=== PATIENT | male | born 1950 | race Caucasian/White ===

== ENCOUNTER 2020-01-15 09:24 | Outpatient (CLI) | payer MEDICARE, SELFPAY ==
[2020-01-15 10:04] LABS: Anion Gap 9 mmol/L (8-16); Blood Urea Nitrogen 20 mg/dL (9-20); Calcium 9.6 mg/dL (8.4-10.2); Carbon Dioxide 26 mmol/L (22-30); Chloride 103 mmol/L (98-107); Estimated Glomerular Filt Rate > 60; Glucose 187 mg/dL (75-110); Sodium 138 mmol/L (137-145)
== END 2020-01-15 09:25 | disposition home or self-care (01) ==
LOC: ANHSURGERY 09:31
PROVIDERS: Anesthesiology; PCP Internal Medicine; Visit Provider Urology
DX: Z01.818 Encounter for other preprocedural examination (principal); E11.9 Type 2 diabetes mellitus without complications; C61 Malignant neoplasm of prostate
CPT/HCPCS: 36415; 80048; 87086

== ENCOUNTER 2020-01-20 02:00 | Outpatient (CLI) | payer MEDICARE, SELFPAY ==
[2020-01-20 19:29] LABS: SARS-CoV-2 RNA PCR Negative
== END 2020-01-20 02:01 | disposition home or self-care (01) ==
LOC: ANHCOVIDDT 02:00
PROVIDERS: PCP Internal Medicine; Visit Provider Urology
DX: Z01.812 Encounter for preprocedural laboratory examination (principal); Z11.59 Encounter for screening for other viral diseases
CPT/HCPCS: 87635; C9803; U0003

== ENCOUNTER 2020-01-23 00:57 | Day surgery (SDC) | payer MEDICARE, SELFPAY ==
[2020-01-10 12:22] VITALS: BMI 29.6
--- NOTE | 2020-01-19 10:06 | PC.NURSE ---
SPOKE WITH PT. AWARE OF NEW DATE AND TIME OF SURGERY AND COVID TESTING. NO CHANGE IN HEALTH HX
[2020-01-23 12:50] LABS: Glucose Point of Care 131 (65-105)
[2020-01-23 13:35] VITALS: BP 135/64; PULSE 61; RESP 14; TEMP 36.6; O2SAT 92; BMI 28.8
[2020-01-23] MEDS: LACTATED RINGERS 1,000 ML 30 ML IV CONT (13:36)
--- NOTE | 2020-01-23 14:19 | WPDHPUPDATE1 ---
History and Physical Update Update Date/Time: 01/23/20 14:19 History and Physical has been reviewed, including an updated exam of the patient. There are NO changes in the patient's condition. Risks, benefits, and alternatives have been discussed and questions answered. Patient agrees to proceed with procedure.
--- NOTE | 2020-01-23 15:39 | WPDANESEPPF ---
Anes - Initial Pre Proc Eval Procedure: Operation Date: 01/23/20 14:00 Proposed Procedures p Insertion SpaceOAR Hydrogel System - Armando Saavedra MD Date/Time: 01/23/20 15:39 Surgeon: Armando Saavedra MD Pre Op Diagnosis: prostate ca Patient Data Age: 69 Gender: M Height: 5 ft 9 in Weight: 88.5 kg Last Vital Signs Temp 36.6 C 01/23/20 13:35 Pulse 61 01/23/20 13:35 Resp 14 01/23/20 13:35 BP 135/64 01/23/20 13:35 Pulse Ox 92 01/23/20 13:35 Allergies Allergy/AdvReac Type Severity Reaction Status Date / Time No Known Allergies Allergy Unverified 01/19/20 10:05 Home Medications Medication Instructions Recorded Confirmed Type amlodipine 10 mg PO HS 01/10/20 01/19/20 History antiox.mv [id number] 1 cap PO DAILY 01/10/20 01/19/20 History [I-Caps] certolizumab pegol [Cimzia] 400 mg SUBCUT MONTHLY 01/10/20 01/19/20 History ergocalciferol (vitamin D2) 1,250 mcg PO MONTHLY 01/10/20 01/19/20 History [Vitamin D2] folic acid 1 mg PO DAILY 01/10/20 01/19/20 History gabapentin 300 mg PO QAM 01/10/20 01/19/20 History glipizide 5 mg PO QAM 01/10/20 01/19/20 History hydroxychloroquine 400 mg PO DAILY 01/10/20 01/19/20 History losartan 100 mg PO HS 01/10/20 01/19/20 History methotrexate sodium 15 mg PO WEEKLY 01/10/20 01/19/20 History rosuvastatin 20 mg PO DAILY 01/10/20 01/19/20 History sildenafil [Viagra] 50 mg PO DAILY PRN 01/10/20 01/19/20 History tamsulosin 0.4 mg PO HS 01/10/20 01/19/20 History tramadol 50 mg PO TID PRN 01/10/20 01/19/20 History Laboratory Tests 01/23/20 12:48 POC Capillary Glucose 131 mg/dl H mg/dl (65-105) Patient hx anesthesia problems: none Family hx anesthesia problems: none PMFSH Past Medical History Medical History Diabetes Hyperlipidemia Hypertension Neuropathy Social History Social History Smoking status: Never smoker Alcohol intake: current Drinks per week: 2 Alcohol use details: BEERS Substance use: never Living arrangements: with family Spiritual care concerns: No Anes - Eval Final PreProcedure Day of Procedure 01/23/20 15:39 Patient weight: overweight Heart: regular rate and rhythm Lungs: clear to auscultation Airway: Mallampati scale class II Neurological: alert and oriented Last oral intake: >/= 8 hours ASA classification: III Emergent: no Anesthetic plan: proceed Anesthesia type and monitoring: general GIVS and standard monitoring Informed Consent: The patient's anesthetic plan and its attendant risks and benefits were discussed with the patient/family/POA. Questions were solicited and answers provided to the satisfaction of the patient/family/POA.
[2020-01-23] MEDS: ceFAZolin 2 GM/D5W 50 ML 2 GM/50 ML BAG IVPB (15:59)
--- NOTE | 2020-01-23 16:21 | P.OP_ITS ---
Procedure Note - Detailed Date of procedure: 01/23/20 Pre-op diagnosis: prostate ca Post-op diagnosis: same Procedure performed: Transrectal ultrasound with space OAR placement Description of procedure: patient is taken to the operative suite and correctly identified. Once anesthesia was obtained he was placed in dorsal lithotomy position prepped draped usual sterile fashion. Transrectal ultrasound was then performed and the prostate was visualized in both the transverse and sagittal views. The plane between the prostate and the rectum was visualized without any difficulty. At this point time the space oar apparatus was mixed ap propriately. We then placed a spinal needle in the perineal space between the prostate and the rectum. The needle tip was visualized at all times it was confirmed in both the transverse and sagittal planes. Couple cc of normal saline was injected and there was a nice little separation. We then went ahead and used the space oar injectable and injected it with the spinal needle which had been placed. At all times the tip of the needle was visualized. There was no penetration of the rectum or prostatic capsule. There was a nice separation noted at termination procedure. Patient tolerated procedure well without any complications and is taken recovery room stable condition. Anesthesia: GLMA Surgeon: Armando Saavedra MD Drains: No Packing: No Pathology: none sent Complications: No immediate complications Condition: stable Disposition: PACU
[2020-01-23 16:27] VITALS: BP 108/49; PULSE 51; RESP 14
[2020-01-23 16:57] VITALS: BP 119/59; PULSE 57; RESP 14
[2020-01-23 17:27] VITALS: BP 142/65; PULSE 60; RESP 14
[2020-01-23 17:45] VITALS: BP 148/67; PULSE 60; RESP 14
== END 2020-01-23 17:55 | disposition home or self-care (01) ==
PROVIDERS: PCP Internal Medicine; Visit Provider Urology
PROC: (CPT 55874; principal; 2020-01-23 14:00)
DX: C61 Malignant neoplasm of prostate (principal); E11.40 Type 2 diabetes mellitus with diabetic neuropathy, unspecified; Z79.84 Long term (current) use of oral hypoglycemic drugs; I10 Essential (primary) hypertension; E78.5 Hyperlipidemia, unspecified; Z79.899 Other long term (current) drug therapy
CPT/HCPCS: 55874; A9270; C1889; J0690; J2250; J2704; J3010; J7120

== ENCOUNTER → 2020-03-04 11:31 | Outpatient (CLI) | payer MEDICARE, SELFPAY ==
--- NOTE | ~2020-03-04 | XR_ITS ---
EXAMINATION: XR chest 2V DATE: 03/04/2020 11:53 INDICATION: Asbestosis exposure. TECHNIQUE: Frontal and lateral views of the chest were obtained. COMPARISON: Chest 2 views 05/28/2016, CT abdomen 10/04/2017 FINDINGS: The chest demonstrates clear lungs without pneumonia, pleural effusion, or pneumothorax. Th e heart size is normal. IMPRESSION: 1. No acute cardiopulmonary disease. Reviewed, dictated and finalized at location A.
== END ==
PROVIDERS: PCP Internal Medicine; Visit Provider Internal Medicine
DX: Z77.090 Contact with and (suspected) exposure to asbestos (principal)
CPT/HCPCS: 71046

== ENCOUNTER 2021-06-04 09:03 | Outpatient (CLI) | payer MEDICARE, SELFPAY ==
--- NOTE | ~2021-06-04 | XR_ITS ---
EXAMINATION: XR abdomen/kub 1V DATE: 06/04/2021 09:26 INDICATION: Calcium kidney stone. TECHNIQUE: A supine view of the abdomen on 2 radiographs was obtained. COMPARISON: Abdomen radiographs 03/23/2018, CT abdomen 10/04/2017 FINDINGS: There are no dilated loops of bowel. The kidneys are obscured by bowel. 2 mm and 3 mm calci fications overlie the expected area of left kidney. There are phleboliths in the pelvis. Surgical cli ps overlie the pelvis. There are changes of anterior and posterior fusion procedures in lumbar spine. IMPRESSION: 1. Kidneys obscured by bowel. Small calcifications overlying the expected area of left kidney may be stones or calcifications in stool. Reviewed, dictated and finalized at location B. GER ETL
== END 2021-06-04 09:04 | disposition home or self-care (01) ==
LOC: ANHIMG 09:08
PROVIDERS: PCP Internal Medicine; Visit Provider Urology
DX: N20.0 Calculus of kidney (principal)
CPT/HCPCS: 74018

== ENCOUNTER 2021-09-29 01:49 | Day surgery (SDC) | payer MEDICARE, SELFPAY ==
[2021-09-10 14:58] VITALS: BMI 29.5
[2021-09-29 09:37] VITALS: BP 148/61; PULSE 95; RESP 19; TEMP 36.4; O2SAT 96
[2021-09-29] MEDS: LACTATED RINGERS 1,000 ML 150 ML IV CONT (09:51)
[2021-09-29 09:54] LABS: Glucose Point of Care 126 mg/dl (65-105)
--- NOTE | 2021-09-29 09:55 | PM.HPGS ---
History of Present Illness History of Present Illness Consent: Risks, benefits, and alternatives have been discussed and questions answered. Patient agrees to proceed with procedure. Chief complaint: family hx of colon ca Narrative: Chance Cervantes Sr. is a 70 year old male referred for colon cancer screening. He has a family history of colon cancer, his father. Review of Systems Review of Systems: All systems reviewed & are unremarkable except as noted in HPI and below PMFSH Past Medical History Medical History (Updated 09/29/21 @ 09:55 by Tirso Sheffield MD) Diabetes Hyperlipidemia Hypertension Neuropathy Social History Social History Smoking status: Never smoker Alcohol intake: current Drinks per week: 2 Alcohol use details: BEERS Substance use: never Substance use type: does not use Living arrangements: with family Spiritual care concerns: No Meds Home Medications and Allergies Home Medications Medication Instructions Recorded Confirmed Type Cimzia 400 mg SUBCUT MONTHLY 01/10/20 09/10/21 History I-Caps 1 cap PO DAILY 01/10/20 09/10/21 History amlodipine 5 mg PO HS 01/10/20 09/10/21 History ergocalciferol (vitamin D2) 1,250 mcg PO MONTHLY 01/10/20 09/10/21 History [Vitamin D2] gabapentin 300 mg PO QAM 01/10/20 09/10/21 History glipizide 5 mg PO QAM 01/10/20 09/10/21 History hydroxychloroquine 400 mg PO DAILY 01/10/20 09/10/21 History losartan 100 mg PO HS 01/10/20 09/10/21 History rosuvastatin 10 mg PO DAILY 01/10/20 09/10/21 History sildenafil [Viagra] 50 mg PO DAILY PRN 01/10/20 09/10/21 History tamsulosin 0.4 mg PO HS 01/10/20 09/10/21 History tramadol 50 mg PO TID PRN 01/10/20 09/10/21 History chlorthalidone 12.5 mg PO DAILY 09/10/21 09/10/21 History Allergies Allergy/AdvReac Type Severity Reaction Status Date / Time No Known Allergies Allergy Verified 09/29/21 09:35 Vital Signs Vital Signs - 24 hr 09/29/21 09:37 Temperature 36.4 C Pulse Rate 95 Respiratory Rate 19 Blood Pressure 148/61 H Pulse Oximetry 96 Exam Resp: Auscultation: clear to auscultation bilaterally Cardio: Rate: regular rate Rhythm: regular rhythm GI: GI Palp: Yes Soft to palpation and No Tenderness to palpation present (GI) Assessment and Plan Assessment and plan (1) Colon cancer screening: Code(s): Z12.11 - Encounter for screening for malignant neoplasm of colon Status: Acute Assessment and Plan: Colonoscopy with possible biopsy or polypectomy or cautery or injection of substances.
--- NOTE | 2021-09-29 10:09 | WPDANESEPPF ---
Anes - Initial Pre Proc Eval Procedure: Operation Date: 09/29/21 10:30 Proposed Procedures p Screening Colonoscopy - Tirso Sheffield MD Date/Time: 09/29/21 10:09 Surgeon: Tirso Sheffield MD Pre Op Diagnosis: family hx of colon ca Patient Data Age: 70 Gender: M Height: 1.78 m Weight: 90.8 kg Last Vital Signs Temp 97.6 F 09/29/21 09:37 Pulse 95 09/29/21 09:37 Resp 19 09/29/21 09:37 BP 148/61 H 09/29/21 09:37 Pulse Ox 96 09/29/21 09:37 Allergies Allergy/AdvReac Type Severity Reaction Status Date / Time No Known Allergies Allergy Verified 09/29/21 09:35 Home Medications Medication Instructions Recorded Confirmed Type Cimzia 400 mg SUBCUT MONTHLY 01/10/20 09/10/21 History I-Caps 1 cap PO DAILY 01/10/20 09/10/21 History amlodipine 5 mg PO HS 01/10/20 09/10/21 History ergocalciferol (vitamin D2) 1,250 mcg PO MONTHLY 01/10/20 09/10/21 History [Vitamin D2] gabapentin 300 mg PO QAM 01/10/20 09/10/21 History glipizide 5 mg PO QAM 01/10/20 09/10/21 History hydroxychloroquine 400 mg PO DAILY 01/10/20 09/10/21 History losartan 100 mg PO HS 01/10/20 09/10/21 History rosuvastatin 10 mg PO DAILY 01/10/20 09/10/21 History sildenafil [Viagra] 50 mg PO DAILY PRN 01/10/20 09/10/21 History tamsulosin 0.4 mg PO HS 01/10/20 09/10/21 History tramadol 50 mg PO TID PRN 01/10/20 09/10/21 History chlorthalidone 12.5 mg PO DAILY 09/10/21 09/10/21 History Laboratory Tests 09/29/21 09:43 POC Capillary Glucose 126 mg/dl H mg/dl (65-105) Patient hx anesthesia problems: none Family hx anesthesia problems: none Results Review: All pre-operative results and documents have been reviewed as part of the pre-operative evaluation. COUNTS INCLUDE 234 BEDS AT THE [facility] Past Medical History Medical History (Updated 09/29/21 @ 09:55 by Tirso Sheffield MD) Diabetes Hyperlipidemia Hypertension Neuropathy Social History Social History Smoking status: Never smoker Alcohol intake: current Drinks per week: 2 Alcohol use details: BEERS Substance use: never Substance use type: does not use Living arrangements: with family Spiritual care concerns: No Anes - Eval Final PreProcedure Day of Procedure 09/29/21 10:09 Patient weight: overweight Heart: regular rate and rhythm Lungs: clear to auscultation Airway: Mallampati scale class II Neurological: alert and oriented Last oral intake: >/= 8 hours ASA classification: III Emergent: no Anesthetic plan: proceed Anesthesia type and monitoring: general GIVS and standard monitoring Results Review: All pre-operative results and documents have been reviewed as part of the pre-operative evaluation. Informed Consent: The patient's anesthetic plan and its attendant risks and benefits were discussed with the patient/family/POA. Questions were solicited and answers provided to the satisfaction of the patient/family/POA.
[2021-09-29 10:31] VITALS: BP 109/66; PULSE 71; RESP 17; O2SAT 96
[2021-09-29 10:41] VITALS: BP 117/65; PULSE 67; RESP 16; O2SAT 96
[2021-09-29 10:51] VITALS: BP 117/64; PULSE 65; RESP 18; O2SAT 96
== END 2021-09-29 10:55 | disposition home or self-care (01) ==
PROVIDERS: PCP Internal Medicine; Visit Provider Internal Medicine Gastroenterology
PROC: 0DJD8ZZ Inspection of Lower Intestinal Tract, Via Natural or Artificial Opening Endoscopic (ICD-10-PCS; CPT 45378; principal; 2021-09-29 10:30)
DX: Z12.11 Encounter for screening for malignant neoplasm of colon (principal); D12.2 Benign neoplasm of ascending colon; D12.5 Benign neoplasm of sigmoid colon; Z80.0 Family history of malignant neoplasm of digestive organs; K64.8 Other hemorrhoids; K57.30 Diverticulosis of large intestine without perforation or abscess without bleeding; K62.7 Radiation proctitis; I10 Essential (primary) hypertension; E78.5 Hyperlipidemia, unspecified; E11.40 Type 2 diabetes mellitus with diabetic neuropathy, unspecified
CPT/HCPCS: 45385; 82948; 88305; J2704; J7120

== ENCOUNTER 2022-01-12 14:56 | Outpatient (CLI) | payer MEDICARE, SELFPAY ==
--- NOTE | ~2022-01-12 | CT_ITS ---
EXAMINATION: CT abdomen pelvis wo/w con DATE: 01/12/2022 15:47 INDICATION: Hematuria. TECHNIQUE: Computed tomography (CT) of the abdomen and pelvis was performed without and with intraven ous contrast using a total of 130 mL Omnipaque-350 intravenous contrast with a double-bolus technique for simultaneous opacification of the renal parenchyma and renal collecting system. Automated exposu re control and iterative reconstruction technique were employed. The dose-length product was 1452.50 mGy-cm. COMPARISON: CT abdomen 10/04/2017 FINDINGS: The visualized portions of the lung bases demonstrate mild atelectasis. No pleural effusion. The hear t size is normal. There are coronary artery calcifications. No pericardial effusion. The liver, gallb ladder, spleen, pancreas, and adrenal glands are normal. There are cysts in the kidneys measuring up to 4.7 cm on the left. There are 3 stones in left kidney measuring up to 5 mm. The ureters are well o pacified and are normal. There is diffuse bladder wall thickening, likely secondary to chronic outlet obstruction from the severely enlarged prostate. There are brachytherapy seeds in the prostate. Ther e is a left inguinal hernia containing fat. There is diverticulosis of the colon without evidence of diverticulitis. The appendix is normal. There are no dilated loops of bowel. There are no pathologica lly enlarged lymph nodes. There is no free intraperitoneal fluid. There is severe lumbar spondylosis. There are changes of anterior and posterior fusion procedures in lumbar spine. IMPRESSION: 1. Nonobstructing left kidney stones. 2. Diffuse bladder wall thickening, likely secondary to chronic outlet obstruction from the severely enlarged prostate. Reviewed, dictated and finalized at location A. IMPRESSION: 1. Nonobstructing left kidney stones. 2. Diffuse bladder wall thickening, likely secondary to chronic outlet obstruct ion from the severely enlarged prostate.
--- NOTE | ~2022-01-12 | XR_ITS ---
EXAM: XR abdomen/kub 1V DATE: 01/12/2022 15:18 HISTORY: GROSS HEMATURIA . COMPARISON: 06/04/2021. FINDINGS: Normal bowel gas pattern. No organomegaly. Stable left lower pole nephroliths. Pelvic phle boliths. Surgical clips or seeds markers overlie the pelvis. Lumbar spine fusions. Severe degenerativ e change in the spine. IMPRESSION: Stable left nephrolithiasis. Reviewed, dictated and finalized at location K.
[2022-01-12 15:28] LABS: Estimated Glomerular Filt Rate 50
== END 2022-01-12 14:57 | disposition home or self-care (01) ==
PROVIDERS: PCP Internal Medicine; Visit Provider Urology
DX: R31.0 Gross hematuria (principal); N20.0 Calculus of kidney
CPT/HCPCS: 74018; 74178; Q9967

== ENCOUNTER 2022-04-22 14:49 | Outpatient (CLI) | payer MEDICARE, SELFPAY ==
--- NOTE | 2022-04-22 | ECG_ITS ---
Measurements Intervals [place] Rate: 61 P: 45 TN: 263 QRS: -3 QRSD: 97 T: 12 QT: 402 QTc: 406 Interpretive Statements SINUS RHYTHM WITH FIRST DEGREE AV BLOCK LEFT VENTRICULAR HYPERTROPHY ABNORMAL ECG NO PREVIOUS ECG AVAILABLE FOR COMPARISON Electronically Signed On 04-22-2022 16:11:59 [employer] DEVEL[employer] by Artie Paredes D.O.
[2022-04-22 16:11] LABS: Anion Gap 7 mmol/L (8-16); Blood Urea Nitrogen 20 mg/dL (9-20); Calcium 9.5 mg/dL (8.4-10.2); Carbon Dioxide 20 mmol/L (22-30); Chloride 108 mmol/L (98-107); Estimated Glomerular Filt Rate > 60; Glucose 113 mg/dL (65-110); Potassium 4.4 mmol/L (3.4-5.0); Sodium 135 mmol/L (137-145)
== END 2022-04-22 14:50 | disposition home or self-care (01) ==
PROVIDERS: PCP Internal Medicine; Visit Provider Orthopaedic Surgery
DX: Z01.818 Encounter for other preprocedural examination (principal); I44.0 Atrioventricular block, first degree
CPT/HCPCS: 36415; 80048; 93005

== ENCOUNTER 2023-07-28 08:45 | Outpatient (CLI) | payer MEDICARE, SELFPAY ==
--- NOTE | ~2023-07-28 | CT_ITS ---
CT of the Abdomen and Pelvis: Indication: Chronic kidney disease, renal cyst Technique: 2.5 mm axial scans were obtained through the abdomen and pelvis following intravenous adm inistration of 100 cc of Omnipaque 350. Dose reduction technique was used on this scan by utilizing a utomated exposure control and iterative reconstruction technique. The dose-length product (DLP) was 7 06.45 mGy-cm. COMPARISON: 01/12/2022 Findings: Scans through the lung bases are unremarkable. The liver, spleen, pancreas, gallbladder, and adrenal glands are within normal limits. Bilateral chantel l cysts are present. There are several small nonobstructing left renal stones, largest measuring 5 mm . There are atherosclerotic calcifications of the aorta. No lymphadenopathy. No bowel obstruction or bowel wall thickening. There is no evidence to suggest acute appendicitis. Images through the pelvis were performed. Questionable mild urinary bladder wall thickening. Prostate gland markedly enlarged. Impression: Nonobstructing left nephrolithiasis. Bilateral renal cysts. Questionable cystitis versus underdistention. Bladder. Correlate with clinical symptoms and urinalysi s. Markedly enlarged prostate gland. Reviewed, dictated and finalized at [facility]. [employer] Impression: Nonobstructing left nephrolithiasis. Bilateral renal cysts. Questionable cystitis versus underdistention. Bladder. Correlate with clinical symptoms and urinalysis. Markedly enlarged prostate gland.
[2023-07-28 09:13] LABS: Estimated Glomerular Filt Rate 54
== END 2023-07-28 08:46 | disposition home or self-care (01) ==
PROVIDERS: PCP Internal Medicine; Visit Provider Internal Medicine Nephrology
DX: N20.0 Calculus of kidney (principal); N28.1 Cyst of kidney, acquired; N12 Tubulo-interstitial nephritis, not specified as acute or chronic; E78.00 Pure hypercholesterolemia, unspecified; E11.22 Type 2 diabetes mellitus with diabetic chronic kidney disease; I12.9 Hypertensive chronic kidney disease with stage 1 through stage 4 chronic kidney disease, or unspecified chronic kidney disease; N18.2 Chronic kidney disease, stage 2 (mild); R80.1 Persistent proteinuria, unspecified; N40.0 Benign prostatic hyperplasia without lower urinary tract symptoms
CPT/HCPCS: 74177; Q9967

== ENCOUNTER 2024-09-27 09:38 | Emergency (ER) | payer MEDICARE, SELFPAY ==
--- NOTE | ~2024-09-27 | XR_ITS ---
EXAMINATION: XR hand RT min 3V DATE: 09/27/2024 10:10 INDICATION: Pain and swelling at the right thumb TECHNIQUE: Posteroanterior, oblique and lateral views of the right hand were obtained. COMPARISON: 07/14/2022 FINDINGS: No fracture or traumatic malalignment. There is polyarticular osteoarthritis, severe at the interphal angeal joints, triscaphe and first carpal metacarpal joints and moderate severity at the distal radio ulnar, radiocarpal, midcarpal and third and fourth metacarpophalangeal joints and mild at the remaini ng joints in the carpus and remaining metacarpophalangeal joints. Again seen is a third proximal inte rphalangeal joint arthroplasty with 12 degrees ulnar angulation. No acute appearing erosions, osteoly sis or periosteal reaction. Atherosclerotic calcifications at the distal forearm extending into the h and. IMPRESSION: 1. 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 No acute osseous abnormality. Reviewed, dictated and finalized at location A. IMPRESSION: 1. 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 No acute osseous abno rmality.
[2024-09-27 09:50] VITALS: BP 143/54; PULSE 64; RESP 16; TEMP 36.9; O2SAT 99
--- NOTE | 2024-09-27 09:57 | ED_ITS ---
HPI - Extremity Injury (Upper) General Chief Complaint: Extremity Injury, Upper Stated Complaint: rt hand pain Time Seen by Provider: 09/27/24 09:57 Source: patient Mode of arrival: ambulatory Limitations: no limitations Related Data Home Medications ?Medication ?Instructions ?Recorded ?Confirmed ?Last Taken ?Type amlodipine 10 mg tablet 5 mg PO HS 01/10/20 07/01/23 09/28/21 History certolizumab pegol 400 mg/2 mL 400 mg subcut MONTHLY 01/10/20 07/01/23 09/28/21 History (200 mg/mL x2) subcutaneous syringe kit (Cimzia) ergocalciferol (vitamin D2) 1,250 1,250 mcg PO MONTHLY 01/10/20 07/01/23 09/28/21 History mcg (50,000 unit) capsule (Vitamin D2) gabapentin 100 mg capsule 300 mg PO QAM 01/10/20 07/01/23 09/28/21 History hydroxychloroquine 200 mg tablet 400 mg PO DAILY 01/10/20 07/01/23 09/28/21 History losartan 100 mg tablet 100 mg PO HS 01/10/20 07/01/23 09/28/21 History rosuvastatin 20 mg tablet 10 mg PO DAILY 01/10/20 07/01/23 09/28/21 History sildenafil 50 mg tablet (Viagra) 50 mg PO DAILY PRN Erectile 01/10/20 07/01/23 09/28/21 History Dysfunction tamsulosin 0.4 mg capsule 0.4 mg PO HS 01/10/20 07/01/23 09/28/21 History tramadol 50 mg tablet 50 mg PO TID PRN Pain 01/10/20 07/01/23 09/28/21 History chlorthalidone 25 mg tablet 12.5 mg PO DAILY 09/10/21 07/01/23 09/28/21 History acetaminophen 650 mg 650 mg PO Q12H 07/01/23 07/01/23 Unknown History tablet,extended release (Tylenol 8 Hour) meclizine 25 mg tablet 25 mg PO BID PRN 07/01/23 07/01/23 Unknown History mecobalamin (vitamin B12) 1,000 1,000 mcg PO DAILY 07/01/23 07/01/23 Unknown History mcg chewable tablet sulfasalazine 500 mg tablet 0.5 g PO DAILY 07/01/23 07/01/23 Unknown History vitamins A,C,Q-[id number]-efyqkz 2,148 2 tablet PO BID 07/01/23 07/01/23 Unknown His tory mcg-113 mg-45 mg-17.4 mg tablet (PreserVision AREDS) Allergies Allergy/AdvReac Type Severity Reaction Status Date / Time No Known Allergies Allergy Verified 09/27/24 09:47 [facility] Past Medical History Medical History (Updated 09/27/24 @ 10:23 by Mariangel Cleary NP) Rheumatoid arthritis Neuropathy Hypertension Hyperlipidemia Diabetes Surgical History Surgical History (Updated 07/01/23 @ 08:50 by Chalino Walters MD) History of back surgery x3 History of carpal tunnel release of both wrists History of shoulder surgery bilateral History of hand surgery History of ankle surgery History of knee replacement bilateral History of arthroscopy of left knee Family History Family History (Updated 07/01/23 @ 08:[address] Glass CMA) Mother Cancer Father Cancer Social History Social History (Updated 07/01/23 @ 08:[address] CMA) Smoking status: Never smoker Alcohol intake: current Drinks per week: 2 Alcohol use details: BEERS Substance use: never Substance use type: does not use Do You Feel Safe in your Home?: Yes Lack of Transportation: No Lack of Food: Never True Current Housing: I Have Housing Concerned About Future Housing: No Difficulty Paying Gas/Electric Bills: No Difficulty Paying for Meds: No Currently Unemployed: No Education: Trade/Vocational Certificate Difficulty w/ Childcare or Family Care: No Living arrangements: with family Occupation/Education: retired Spiritual care concerns: No Course Vital Signs Vital signs: Vital Signs Temperature 36.9 C 09/27/24 09:50 Pulse Rate 64 09/27/24 09:50 Respiratory Rate 16 09/27/24 09:50 Blood Pressure 143/54 H 09/27/24 09:50 Pulse Oximetry 99 09/27/24 09:50 Oxygen Delivery Room Air 09/27/24 09:50 Temperature 36.9 C 09/27/24 09:50 Pulse Rate 64 09/27/24 09:50 Respiratory Rate 16 09/27/24 09:50 Blood Pressure 143/54 H 09/27/24 09:50 Pulse Oximetry 99 09/27/24 09:50 Oxygen Delivery Room Air 09/27/24 09:50 MDM - Extremity Injury (Upper) Imaging Data My impression: agree with radiologist Radiologist's impression: EXAMINATION: XR hand RT min 3V DATE: 09/27/2024 10:10 INDICATION: Pain and swelling at the right thumb TECHNIQUE: Posteroanterior, oblique and lateral views of the right hand were obtained. COMPARISON: 07/14/2022 FINDINGS: No fracture or traumatic malalignment. There is polyarticular osteoarthritis, severe at the interphalangeal joints, triscaphe and first carpal metacarpal joints and moderate severity at the distal radioulnar, radiocarpal, midcarpal and third and fourth metacarpophalangeal joints and mild at the remaining joints in the carpus and remaining metacarpophalangeal joints. Again seen is a third proximal interphalangeal joint arthroplasty with 12 degrees ulnar angulation. No acute appearing erosions, osteolysis or periosteal reaction. Atherosclerotic calcifications at the distal forearm extending into the hand. IMPRESSION: 1. 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 No acute osseous abnormality. Discharge Plan Discharge Clinical Impression: Sprain of hand, thumb, right Qualifiers: Encounter type: initial encounter Sprain of finger site: unspecified site Qualified Code(s): S63.601A - Unspecified sprain of right thumb, initial encounter Patient Disposition: Home Condition: Stable Instructions: Finger Sprain (ED) Additional Instructions: the x-ray of your right thumb was negative for fracture. Take Tylenol every 6-8 hours as needed for pain. Apply ice as needed for pain. Elevate when at rest. follow-up with your doctor if not improving. Patient Language: American Prescriptions: No Action acetaminophen [Tylenol 8 Hour] 650 mg tablet extended release 650 mg PO Q12H meclizine 25 mg tablet 25 mg PO BID PRN sulfasalazine 500 mg tablet 0.5 g PO DAILY Rx Instructions: give with food (meal/snack) mecobalamin (vitamin B12) 1,000 mcg tablet,chewable 1,000 mcg PO DAILY PreserVision AREDS 2,148 mcg-113 mg-45 mg-17.4mg tablet 2 tablet PO BID Rx Instructions: administer with AM and PM meals sildenafil [Viagra] 50 mg tablet 50 mg PO DAILY PRN (Reason: Erectile Dysfunction) tramadol 50 mg tablet 50 mg PO TID PRN (Reason: Pain) tamsulosin 0.4 mg capsule 0.4 mg PO HS amlodipine 10 mg tablet 5 mg PO HS gabapentin 100 mg capsule 300 mg PO QAM ergocalciferol (vitamin D2) [Vitamin D2] 1,250 mcg (50,000 unit) capsule 1,250 mcg PO MONTHLY hydroxychloroquine 200 mg tablet 400 mg PO DAILY Rx Instructions: NOON losartan 100 mg tablet 100 mg PO HS rosuvastatin 20 mg tablet 10 mg PO DAILY Cimzia 400 mg/2 mL (200 mg/mL x 2) Syringe Kit 400 mg SUBCUT MONTHLY Rx Instructions: PT GOES TO OFFICE FOR INJECTION MONTHLY chlorthalidone 25 mg tablet 12.5 mg PO DAILY Follow-up/Referrals: Suki,MD Case [Primary Care Provider] - Time of Disposition: 10:23
--- OUTSIDE RECORDS SUMMARY | 2024-09-27 10:13 | XMS_ITS | Data Portability ---
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 1.35, GFR 56 A1C 6.5 06/25/2023: Gluc 125, GFR 61 A1C 6.5 [email or web address] Not available 01/03/2024 14:18:51 03/21/2024 03/21/2024 Assessment: Asbestos exposure BUL mild pleural thickening/plaques BLL bronchiectasis Rheumatoid arthritis Plan: The following were reviewed and explained to the patient: Chest CT 01/11/23 BUL mild pleural thickening/plaques, RUL granuloma Chest CT 01/20/24 stable pleural plaques, BLL bronchiectasis Chest 2 views 05/04/14 wnl Chest 2 views 03/10/17 wnl Chest 2 views 03/23/19 wnl Lab data 02/01/23 allergic to Alternaria PFT 02/08/23 nl FEV1/FVC, FEV1 2.96 L (113%), TLC 5.35 L (95%), RV 1.44 L (62%), DLCO 96% PFT 03/21/24 nl FEV1/FVC, FEV1 3.03 L (114%), TLC 5.68 L (99%), RV 1.79 L (75%), DLCO 101% Causes of pleural thickening include: - Chronic pneumonia - Chronic inflammation - Tuberculosis - Empyema (accumulation of pus in the pleura due to infection) - Hemothorax (accumulation of blood in the pleura due to chest injury) - Coronary artery bypass grafting surgery - Radiation exposure - Asbestos exposure The pleuropulmonary manifestations of RA include: Rheumatoid-associat ed parenchymal lung disease including interstitial lung disease and pulmonary nodules Pleuropulmonary infection, related to RA and drug-induced immunosuppression Large and small airway obstruction Rheumatoid pleural disease Drug-related lung disease secondary to drugs used to treat rheumatoid disease Vascular disease with vasculitis and pulmonary hypertension Comorbid medical conditions (eg, thoracic cage immobility, venous thromboembolism, lung cancer) Overlapping clinical syndromes (eg, interstitial lung disease and pleural thickening) Repeat chest CT and PFT one week before return. Advised to continue not to smoke. Adherence to therapy is advocated. Nonadherence may lead to treatment failure, further progression of the condition, and other complications. Hospitals admissions are often the result of individuals not taking prescription medications accurately. Alternatively, greater adherence to medication regimens have shown to lower rates of hospitalization and decrease total medical costs in patients with chronic medical conditions. Advocated influenza vaccination annually and pneumonia vaccination CA. Advocated weight loss through diet and exercise. Patient's ideal body weight according to height and gender is up to 185 lbs. Encouraged patient to adjust caloric intake to maintain/achieve ideal body weight, emphasizing on fruits, vegetables, whole grains, and fat-free or low-fat products. These include lean meats, poultry, fish, beans, eggs, and nuts and foods that are low in saturated fats, trans-fats, cholesterol, salt (sodium), and glycemic index. Stressed the importance of regular exercise up to the patient's capacity limits. In this case, we recommend 20 min daily walking, 2 days a week of resistance training. Patient to monitor BP daily and bring records to PCP for further management. Follow-up: 1 year, February 2025 Not available 03/21/2024 16:42:59 06/19/2024 06/19/2024 This note is dictated and transcribed by [employer]. Bridge Inspector variances may occur. Despite proofreading, typographical errors may occur. Occasional wrong-word or '[id number]' substitutions may have occurred due to the inherent limitations of voice recording. Read the chart carefully and recognize, using context, where substitutions have occurred. Not available 06/19/2024 13:33:29 07/03/2024 07/03/2024 08/11/2022: Gluc 103, Cr 1.38, GFR 55 A1C 6.7 12/28/2022: Gluc 128, Cr. 1.35, GFR 56 A1C 6.5 06/25/2023: Gluc 125, GFR 61 A1C 6.5 06/21/2024: A1 5.6 Gluc 132, Cr 1.3, GFR 58 TG 154 [email or web address] Not available 07/03/2024 10:29:32 08/28/2024 08/28/2024 This note is dictated and transcribed by [email or web address] Direct Software. Bridge Inspector variances may occur. Despite proofreading, typographical errors may occur. Occasional wrong-word or '[id number]' substitutions may have occurred due to the inherent limitations of voice recording. Read the chart carefully and recognize, using context, where substitutions have occurred. Not available 08/28/2024 09:59:57 Plan of Treatment Reminders Order Date Submit Date Provider Last Modified By Organization Details Last Modified Time Details Appointments New Patient 15 2024 08:10A M Ruth Brandt NP Not available Not available Not available Follow Up 15 2024 09:45A M Case beltrán MD Not available Not available Not available Any 15 2024 09:00A Miguelina Duran MD Not available Not available Not available Lab vitamin D, 25-hydrox y, total, serum 2024 025 [facility], [address] [facility], [facility], [place], [address], 07/03/2024 10:52:25 HbA1c (hemoglob in A1c), blood 2024 025 [facility], [address] [facility] [address], [place], [address], 07/03/2024 10:52:24 microalbu min, urine 2024 025 [facility], [address] [place], [place] [address]winter [facility] [address], [place], [address], 07/03/2024 10:52:26 lipid panel, serum 2024 025 [facility], [address] [place] [address] [facility], [place], [address], 07/03/2024 10:52:25 CMP, serum or plasma 2024 025 [facility], [address] [place] [address], [place], [address], 07/03/2024 10:52:25 CBC w/ auto diff 2024 025 [facility], [address] [place] [address], [place], [address], 07/03/2024 10:52:24 TSH + free T4, serum 2024 025 [facility], [address] [place] [address], [place], [address], 07/03/2024 10:52:27 lipid panel, serum 2023 024 [email or web address] [facility], [address] [place] [address], [place], [address], 07/04/2024 08:22:06 CMP, serum or plasma 2023 024 [email or web address] [facility], [address] [place] [address], [place], [address], 07/04/2024 08:22:06 CBC w/ auto diff 2023 024 [email or web address] [facility], [address] [place] [address], [place], [address], 07/04/2024 08:22:06 TSH + free T4, serum 2023 024 [email or web address] [facility], [address] [place] [address], [place], [address], 07/04/2024 08:22:06 vitamin D, 25-hydrox y, total, serum 2023 024 [email or web address] [facility], [address] [facility], [place], [address], 07/04/2024 08:22:06 HbA1c (hemoglob in A1c), blood 2023 024 [email or web address] [facility], [address] [facility], [place], [address], 07/04/2024 08:22:05 microalbu min, urine 2023 024 [email or web address] [facility], [address] [facility], [place], [address], 07/04/2024 08:22:05 Referral urologist referral - Please call patient to schedule an appointme nt. Thank you. 2024 025 berhane Saavedra MD, [address] [facility], [facility] [address], [place], [address], 08/03/2024 15:34:39 podiatris t referral 2024 025 [email or web address] Finesse Miller DPM, [address] [facility], [facility] [address], [place], [address], 07/03/2024 14:35:49 urologist referral 2023 024 [email or web address] Saavedra MD, [address] [facility], [facility] [address], [place], [address], 03/02/2024 08:54:13 podiatris t referral 2023 024 [email or web address] Miller DPM, [address] [facility], [facility] [address], [place], [address], 02/03/2024 14:59:51 Procedures None recorded. Surgeries None recorded. Imaging CT, chest, w/o contrast - HIGH RESOLUTIO N 2023 025 Not available 03/21/2024 10:40:29 Medication Orders None recorded. Patient TargetsNo targets recorded. Patient Instructions Encounter Date Encounter Id Patient Instructions Last Modified By Organization Details Last Modified Time 01/03/2024 [id number] dementia rating scale-2* Not available 01/05/2024 11:54:25 alcohol misuse* Not available 01/05/2024 11:54:30 depression screening* Not available 01/05/2024 11:54:36 Timed Up and Go test (TUG)* [email or web address] Not available 01/05/2024 11:54:42 multi-dimensiona l health assessment questionnaire* [email or web address] Not available 01/05/2024 11:54:17 Personalized Hea lt Plan and Screening Recommendations Advance Directives - Do you have one? No You have indicated that you are capable of preparing your advance care directive Advance Directives - Do we have your advance directive on file in your health record? Primary Prevention/Interven tion (prevents or decreases the chance of common diseases from occurring) Smoking Risk: Non Smoker Alcohol Misuse Screening: Negative Weight: Appropriate Overwei ght continue your current weight loss efforts Physical activity: Appropriate physical activity Nutrition: Good Average Refer to attached handout Heart-Healthy Diet: After Your Visit Fall Risk (screened today): Low Refer to attached handout Preventing Falls: After your Visit Vaccines Pneumococcal: Ordered Recommended today Recommended today, but you have declined No further needed Influenza: Your next one in the fall of this year Chronic Disease Risks Stroke: Low Risk Intermediate Risk Heart Attack: Low risk Intermediate Risk Clogging of the Arteries: Low risk Intermediate Risk Diabetes: High Risk Active diagnosis, Continue current treatment plan Secondary Prevention/Interven tion (detects treatable diseases before they may cause symptoms, disability, or ) Prostate Cancer Screening: No PSA screening necessary Colon Cancer Screening: Colonoscopy Date Screening Last Performed: 2017 Eye Disease Screening: Ordered Recommended today Dementia Risk: Low I have no recommendations Depression Screening: Negative Not available 01/03/2024 10:28:07 03/21/2024 [id number] complete PFT w/ post bronchodilator spirometry* Not available 03/21/2024 10:40:29 Reason for Referral Urologist Referral for Prost ate specific antigen above reference range Referring Physician: Case Cohn [facility], Encounter Date: 01/03/2024 Strawhat Sizer Referral for Type 2 diabetes mellitus without complication Referring Physician: Case Cohn [facility], Encounter Date: 01/03/2024 Urologist Referral for Prost ate specific antigen above reference range Please call patient to schedule an appointment. Thank you. Referring Physician: Case Cohn [facility], Encounter Date: 07/03/2024 Strawhat Sizer Referral for Type 2 diabetes mellitus without complication Referring Physician: Case Cohn [facility], Encounter Date: 07/03/2024 Results Created Date Observation Date Name Description Value Unit Range Abnormal Flag Note LastModifiedBy Organization Detail LastModifiedTime 01/20/20 24 01/20/2024 CT, chest , w/o contr ast No observ ation record ed. [email or web address] [facility] [place] ([facility]) [address] [place], [address], 02/07/2024 10:36:37 01/20/20 24 01/20/2024 imagi ng/di agnos tic resul t No observ ation record ed. [facility] [address] [place], [address], 01/20/2024 10:46:50 03/22/20 24 03/21/2024 compl ete PFT w/ post [facility] hodil ator chichi metry * No observ ation record ed. [facility] [place] ([facility]) [address] [place], [address], 03/22/2024 11:16:33 Result Notes None recorded. Problems Name Problem SNOMED Code Status Onset Date Resolution Date Notes Provider Name and Address Organization Details Recorded Time History of left total knee replacemen t 7955616680616 105 Active 2021 Not Available [facility] 3 09:34:32 Plantar fasciitis of right foot 5854784865671 9101 Active 2021 Not Available [facility] 3 09:34:32 Seropositi ve rheumatoid arthritis of bilateral hands 4684039323555 9104 Active 2019 Not Available [facility] 3 09:34:32 Neuropathy due to diabetes mellitus 633150680 Active Not Available [facility] 3 09:34:32 Osteoarthr itis of knee 138004478 Active Not Available [facility] 3 09:34:32 Benign prostatic hyperplasi a without outflow obstructio n 734775142 Active Not Available [facility] 3 09:34:32 Onychomyco sis of toenails 070487249 Active 2021 Not Available [facility] 3 09:34:32 Essential hypertensi on 85142314 Active Not Available [facility] 3 09:34:32 Hyperlipid emia 96545997 Active 2022 Not Available [facility] 3 09:34:32 Hypogonadi sm 08518373 Active 2022 Not Available [facility] 3 09:34:32 Primary erectile dysfunctio n 792459646 Active 2022 Not Available [facility] 3 09:34:32 Vitamin D deficiency 05588659 Active 2022 Not Available [facility] 3 09:34:32 Vertigo 807846905 Active 2022 Not Available [facility] 3 09:34:32 Pleural plaque 723210464 Active 2022 Not Available [facility] 3 09:34:32 Type 2 diabetes mellitus without complicati on 298708700 Active 2023 Case brasher MD [address] [facility], [facility] [address], [place], [address] , [place] [facility] 4 19:05:18 Prostate specific antigen above reference range 279821655 Active 2023 Case brasher MD [address], [address], [place], [address] , [employer] [facility] [employer] [facility] 4 19:05:18 Chronic kidney disease 370093291 Active 2023 Case brasher MD [address], [address], [place], [address] , [employer] [facility] 4 19:05:18 Pain in right hand 0168619490085 09 Active 2024 Case brasher MD [address], [address], [place], [address] , [employer] 5 10:30:16 Fowler of toe 94481921 Active 2024 Finesse Miller DPM [address], [address], [place], [address] , [employer] [facility] 5 10:00:01 Dystrophia unguium 15653751 Active 2024 Finesse Miller DPM [address], [address], [place], [address] , [employer] 5 10:00:10 Diabetic on diet only 913501889 Active 2024 Finesse Miller DPM [address], [address], [place], [address] , [employer] [facility] [employer] [facility] 5 10:00:25 Diabetes mellitus 12034947 Active 2024 Finesse Miller DPM [address], [address], [place], [address] , [employer] [facility] [employer] [facility] 5 10:01:05 Pain in toe 185722729 Active 2024 Finesse Miller DPM [address], [address], [place], [address] , [employer] [facility] [employer] [facility] 5 10:24:38 Curly toe 452200577 Active 2024 Finesse Miller DPM [address], [address], [place], [address] , [employer] 10:25:42 Notes:Medical History: Verti go Bilateral tinnitus/hearing loss COVID infection 02/2021 Rhinitis to Alternaria IgE 24 IU/mL Eosinophils 100/uL AAT PiMM 126 mg% Asbestos exposure 1338-8832 BUL mild pleural thickening/plaques RUL granuloma BLL bronchiectasis 3.8 cm ectatic ascending aorta Hypertension Hyperlipidemia Prediabetes with neuropathy Bilateral renal cysts Left renal calculi Prostate ca s/p radiation 2020 Hypogonadism ED BPH Vit D deficiency Thoracic DDD RA on Cimzia, hydroxychloroquine, sulfasalazine Right plantar fasciitis Onychomycosis Procedure History: Left shoulder surgery Right shoulder surgery Left CTS release surgery Right CTS release surgery Left ankle surgery 1989 Left knee replacement 2004 Right knee replacement 2011 Lumbar fusion surgery 2012 Left distal radial fracture 2013 Colonoscopy with hyperplastic polypectomy 2017 Bilateral hand surgeries 2018 Occupational History: [employer] 4501-2039 Problem Notes None recorded. Procedures Surgical History Date Name Laterality Status Provider Name and Address Organization Details Recorded Time 08/29/19 25 Callus Debridement, One completed Finesse Miller DPM [address], [address], [place], [address], [employer] 08/28/2024 10:23:20 06/19/19 25 Nail Debridement completed Finesse Miller DPM [address], [address], [place], [address], [employer] 06/19/2024 13:31:30 01/03/20 24 Medicare Wellness CPT Code, subsequent completed Jozef Johnston LPN [employer] 01/03/2024 08:41:18 12/20/19 24 Chronic care management services completed Kiley Robins RN [employer] 12/20/2023 11:06:12 08/25/19 23 Nail Debridement completed Finesse Miller DPM [address], [place], [address], [employer] 08/24/2022 11:53:27 Orthopedic Surgery completed Not Available [facility] 07/22/2022 00:53:24 Orthopedic Surgery completed Not Available [facility] 07/22/2022 00:53:24 Imaging Results Imaging Date Name Status LastModified by Organization Details LastModified Time 01/20/2024 CT, chest, w/o contrast completed [email or web address] ([facility]) [address] [place], [address], 02/07/2024 10:36:37 01/20/2024 imaging/diagnostic result active [facility] [address] [place], [address], 01/20/2024 10:46:50 03/21/2024 complete PFT w/ post bronchodilator spirometry* completed [facility] [place] ([facility]) [address] [place], [address], 03/22/2024 11:16:33 Procedure Notes None recorded. Medical Equipment None Reported. Allergies No known drug allergies Medications Name Sig Start Date Stop Date Status Note LastModified by Organization Details LastModified Time Buzz ReferralsTouch Ultra Blue Test Strips USE STRIP TO CHECK GLUCOSE TWICE DAILY 2024 active Not Available Not Available Not Avai lable Miralax 17 gram oral powder packet Take 1 packet every day by oral route. 06/07 completed Not Available Not Available Not Available losartan 50 mg tablet TAKE ONE TABLET BY MOUTH ONCE DAILY 03/10 completed Not Available Not Available Not Available cyclobenz aprine 10 mg tablet Take 1 tablet at bedtime NEEDED ONLY No alcohol, driving or with other sedating medicati ons active Not Available Not Available No t Available silver sulfadiaz ine 1 % topical cream APPLY DAILY TO INVOLVED AREAS NEEDED 02/01 completed Not Available Not Available Not Available metformin 500 mg tablet TAKE 1 TABLET TWICE A DAY BY ORAL ROUTE active Not Available Not Available No t Available prednison e 10 mg tablet TAKE 1 TABLET BY MOUTH THREE TIMES DAILY FOR 3 DAYS THEN 1 TWICE DAILY FOR 2 DAYS THEN 1 ONCE DAILY FOR 1 DAY 05/04 completed Not Available Not Available Not Available trazodone 50 mg tablet Take 1 tablet every day by oral route as needed for 30 days. active Not Available Not Available No t Available sildenafi l 50 mg tablet TAKE 1 TABLET BY MOUTH ONCE A WEEK NEEDED TAKE HALF HOUR PRIOR TO SEX. GO TO ER IF ERECTION LAST MORE THAN 2 HOURS active Not Available Not Available No t Available azithromy melonie 250 mg tablet TAKE 2 TABLETS (500 MG) BY ORAL ROUTE ONCE DAILY FOR 1 DAY THEN 1 TABLET (250 MG) BY ORAL ROUTE ONCE DAILY FOR 4 DAYS 05/04 completed Not Available Not Available Not Available hydrocodo ne 5 mg-acetam inophen 325 mg tablet Take 1 tablet every 6 hours by oral route. 03/13 completed Not Available Not Available Not Available bupivacai ne HCl 0.5 % (5 mg/mL) injection solution Take 2 mg by injectio n route. 05/04 completed Not Available Not Available Not Available prednison e 5 mg tablet TAKE 1 TO 2 TABLETS BY MOUTH ONCE DAILY FOR 7 DAYS NEEDED DURING ARTHRITI S FLARES 02/01 completed Not Available Not Available Not Available sulfasala zine 500 mg tablet,de layed release TAKE 1 TO 2 TABLETS BY MOUTH TWICE DAILY active Not Available Not Available No t Available glipizide ER 5 mg tablet, extended release 24 hr TAKE 1 TABLET BY MOUTH ONCE DAILY active Not Available Not Available No t Available meclizine 12.5 mg tablet Take 1 tablet twice a day by oral route as needed for 30 days. active Not Available Not Available No t Available Zyrtec 10 mg tablet Take 1 tablet every day by oral route. active Not Available Not Available No t Available chlorthal idone 25 mg tablet TAKE 1 TABLET BY MOUTH ONCE DAILY IN THE MORNING active Not Available Not Available No t Available ciproflox acin 250 mg tablet TAKE 1 TABLET BY MOUTH TWICE DAILY active Not Available Not Available No t Available amlodipin e 5 mg tablet TAKE 1 TABLET BY MOUTH AT BEDTIME 12/17 completed Not Available Not Available Not Available sulfameth oxazole 800 mg-trimet hoprim 160 mg tablet TAKE 1 TABLET BY MOUTH TWICE DAILY active Not Available Not Available No t Available tramadol 50 mg tablet TAKE 1 TO 2 TABLETS BY MOUTH NEEDED FOR PAIN MAY TAKE WITH OTC TYLENOL active Not Available Not Available No t Available prednison e 10 mg tablets in a dose pack Take 1 tab by mouth, 3 times a day for 3 daysTake 1 tab by mouth 2 times a day for 2 daysTake 1 tab by mouth once a day for 1 day 04/20 completed Not Available Not Available Not Available Celebrex 200 mg capsule Take 1 capsule every day by oral route. 06/07 completed Not Available Not Available Not Available ciclopiro x 8 % topical solution APPLY SOLUTION TOPICALL Y TO TOENAIL AT BEDTIME 07/03 completed Not Available Not Available Not Available meloxicam 7.5 mg tablet TAKE 1 TABLET BY MOUTH ONCE DAILY active Not Available Not Available No t Available methotrex ate sodium 2.5 mg tablet TAKE 6 TABLETS BY MOUTH ONCE A WEEK active Not Available Not Available No t Available tamsulosi n 0.4 mg capsule TAKE 1 CAPSULE BY MOUTH ONCE DAILY IN THE EVENING active Not Available Not Available No t Available [employer] Ultra Test strips USE STRIP TO CHECK GLUCOSE TWICE DAILY 02/12 completed Not Available Not Available Not Available Kenalog 10 mg/mL suspensio n for injection In office injectio n administ ered by the provider 01/11 completed [facility] [place] [phone] 4- Not Available Not Available Not Available meclizine 25 mg tablet TAKE 1 TABLET BY MOUTH TWICE DAILY NEEDED active Not Available Not Available No t Available metronida zole 0.75 % lotion 09/13 completed Not Available Not Available Not Available amlodipin e 10 mg tablet Take 1 tablet by mouth once daily 08/06 completed Not Available Not Available Not Available hydrocodo ne 7.5 mg-acetam inophen 325 mg tablet TAKE 1 TABLET BY MOUTH EVERY 6 HOURS NEEDED FOR PAIN active Not Available Not Available No t Available prednison e 2.5 mg tablet TAKE 1 TO 3 TABLETS BY MOUTH NEEDED FOR FLARE UPS FOR 5 TO 7 DAYS. NOT TO BE TAKEN DAILY active Not Available Not Available No t Available triamcino lone acetonide 0.1 % topical ointment RUB OINTMENT IN WELL TO INVOLVED AREAS EACH MORNING 12/17 completed Not Available Not Available Not Available promethaz ine 25 mg tablet Take 1 tablet twice a day by oral route as needed for 10 days. active Not Available Not Available No t Available gabapenti n 300 mg capsule TAKE 1 CAPSULE BY MOUTH TWICE DAILY (NO ALCOHOL, DRIVING, OR TAKING WITH SEDATING MEDICATI ONS) active Not Available Not Available No t Available folic acid 1 mg tablet TAKE 1 TABLET BY MOUTH ONCE DAILY 11/04 completed Not Available Not Available Not Available morphine ER 15 mg tablet,ex tended release TAKE 1 TABLET BY MOUTH EVERY 12 HOURS FOR 7 DAYS 01/05 completed has at home but does not take often Not Available Not Available Not Available pravastat in 20 mg tablet 03/10 completed Not Available Not Available Not Available furosemid e 20 mg tablet Take 1 tablet every day by oral route. 07/08 completed Not Available Not Available Not Available gabapenti n 100 mg capsule TAKE 1 CAPSULE BY MOUTH THREE TIMES DAILY NO ALCOHOL DRIVING OR TAKING WITH OTHER SEDATING MEDICATI ONS active Not Available Not Available No t Available ergocalci ferol (vitamin D2) 1,250 mcg (50,000 unit) capsule TAKE 1 CAPSULE BY MOUTH ONCE EVERY MONTH active Not Available Not Available No t Available hydroxych loroquine 200 mg tablet TAKE 2 TABLETS BY MOUTH ONCE DAILY active Not Available Not Available No t Available lisinopri l 10 mg-hydroc hlorothia zide 12.5 mg tablet Take 1 tablet every day by oral route. active Not Available Not Available No t Available doxycycli ne hyclate 20 mg tablet bid 09/13 completed Not Available Not Available Not Available ketoconaz ole 2 % topical cream APPLY CREAM TOPICALL Y TO AFFECTED AREA ONCE DAILY active Not Available Not Available No t Available losartan 100 mg tablet TAKE 1 TABLET BY MOUTH ONCE DAILY active Not Available Not Available No t Available metronida zole 0.75 % topical gel active Not Available Not Available Not Available glipizide 5 mg tablet TAKE 1 TABLET BY MOUTH ONCE DAILY active Not Available Not Available No t Available amoxicill in 875 mg-potass ium clavulana te 125 mg tablet TAKE 1 TABLET BY MOUTH EVERY 12 HOURS FOR 7 DAYS 12/17 completed Not Available Not Available Not Available amoxicill in 500 mg-potass ium clavulana te 125 mg tablet TAKE 1 TABLET BY MOUTH EVERY 8 HOURS FOR 5 DAYS 07/05 completed Not Available Not Available Not Available Pneumovax -23 25 mcg/0.5 mL injection syringe 11/07 completed Not Available Not Available Not Available Arthritis Pain Relief (acetamin ophen) ER 650 mg tablet,ex tend release Take 2 tablets every 8 hours by oral route. 04/15 completed Not Available Not Available Not Available hydrocort isone-min eral oil-white petrolatu m 1 % topical ointment 06/29 completed Not Available Not Available Not Available rosuvasta tin 10 mg tablet TAKE 1 TABLET BY MOUTH EVERY OTHER DAY active Not Available Not Available No t Available rosuvasta tin 20 mg tablet TAKE 1 TABLET BY MOUTH ONCE DAILY active Not Available Not Available No t Available rosuvasta tin 40 mg tablet Take 1 tablet every day by oral route. 08/16 completed Not Available Not Available Not Available tadalafil 20 mg tablet TAKE 1 TABLET BY MOUTH NEEDED active Not Available Not Available No t Available cranberry 15,000mg daily 02/01 completed Not Available Not Available Not Available Fish Oil TK 1T PO QD 02/01 completed Not Available Not Available Not Available ketamine 04/04 completed Not Available Not Available Not Available folic acid 1mg daily 11/[address] Tadeo started 05/02/19 Not Available Not Available Not Available methotrex ate 15mg weekly 07/[address] Tadeo started 05/02/19 Not Available Not Available Not Available Vitamin B12 1000mg QD 02/12 completed Not Available Not Available Not Available PreserVis ion AREDS 02/12 completed Not Available Not Available Not Available lidocaine (PF) 10 mg/mL (1 %) injection solution In office injectio n administ ered by the provider 10/15 completed [facility] [place]: 0409-427 6-17 Not Available Not Available Not Available Zostavax (PF) 19,400 unit/0.65 mL subcutane ous suspensio n active Not Available Not Available Not Available OneTouch UltraMini kit 09/10 completed Not Available Not Available Not Available OneTouch UltraMini one daily 09/10 completed Not Available Not Available Not Available Januvia 50 mg tablet 03/10 completed Not Available Not Available Not Available hydrochlo rothiazid e 12.5 mg tablet qd 09/13 completed Not Available Not Available Not Available peg 3350 240 gram-elec trolytes 22.72 gram-6.72 g-5.84 g powdr for soln 03/10 completed Not Available Not Available Not Available Arthritis Pain Relief (acetamin ophen) 650 mg tablet Take 2 tablets every 8 hours by oral route. 11/27 completed Not Available Not Available Not Available Cimzia infusion s monthly 02/12 completed Not Available Not Available Not Available Cimzia 400 mg/2 mL (200 mg/mL x 2) subcutane ous syringe kit Inject 2 mL every 4 weeks by subcutan eous route. active Not Available Not Available No t Available B12 1000 mg daily active Not Available Not Available No t Available ropivacai ne (PF) 5 mg/mL (0.5 %) injection solution in office 01/11 completed [facility] [place] [address]-93 08-22 Not Available Not Available Not Available Fluvirin 2060-9028 45 mcg (15 mcg x 3)/0.5 mL intramusc ular suspensio n active Not Available Not Available Not Available Vascepa 1 gram capsule Take 2 capsules twice a day by oral route for 90 days. 04/15 completed Not Available Not Available Not Available Multi Vitamin 1 TAB DAILY 02/01 completed Not Available Not Available Not Available Jardiance 10 mg tablet 04/15 completed Not Available Not Available Not Available Flonase Allergy Relief 50 mcg/actua tion nasal spray,nay pension [place] 1 spray every day by intranas al route for 30 days. 07/03 completed Not Available Not Available Not Available MTX 07/10 completed Started by CASER UP of Dr Tadeo Not Available Not Available Not Available OneTouch Ultra Blue Test Strip USE STRIP TO CHECK GLUCOSE TWICE DAILY 02/01 completed Not Available Not Available Not Available OneTouch Ultra2 Meter USE DIRECTED 02/12 completed Not Available Not Available Not Available PreserVis ion AREDS 2 Plus Multivit 200 mcg-15 mcg-5 mg-1 mg capsule Take twice a day by oral route. active Not Available Not Available No t Available Vitals Date Recorded Body height Body mass index (BMI) Body weight Body temperature Heart rate Oxygen saturation Oxygen saturation in Arterial blood by Pulse oximetry Systolic blood pressure Diastolic blood pressure Provider Name and Address Organization Details Last Updated DateTime 4 180.34 cm 26.4 kg/m2 79305.7 5 g 97.8 [degF] 57 /min 97 % 97 % 120 mm[Hg] 50 mm[Hg] Zora Ku MA [facility] 4 09:58:22 Date Recorded Pain severity - 0-10 verbal numeric rating [Score] - Reported Provider Name and Address Organization Details Last Updated DateTime 01/03/2024 3 Jozef Johnston LPN [facility] 01/03/2024 10:23:11 Date Recorded Body height Body mass index (BMI) Body weight Heart rate Oxygen saturation Oxygen saturation in Arterial blood by Pulse oximetry Body temperature Systolic blood pressure Diastolic blood pressure Provider Name and Address Organization Details Last Updated DateTime 4 180.34 cm 26.2 kg/m2 50893.3 7 g 61 /min 97 % 97 % 97.4 [degF] 124 mm[Hg] 68 mm[Hg] Cat Cunningham CMA [facility] 4 10:22:50 Date Recorded Body height Body mass index (BMI) Body weight Heart rate Respiratory rate Oxygen saturation Oxygen saturation in Arterial blood by Pulse oximetry Systolic blood pressure Diastolic blood pressure Provider Name and Address Organization Details Last Updated DateTime 5 180.34 cm 26.2 kg/m2 87140.3 7 g 65 /min 14 /min 98 % 98 % 143 mm[Hg] 72 mm[Hg] Lynn Knight [facility] 5 11:03:17 Date Recorded Body height Body mass index (BMI) Body weight Body temperature Heart rate Oxygen saturation Oxygen saturation in Arterial blood by Pulse oximetry Systolic blood pressure Diastolic blood pressure Provider Name and Address Organization Details Last Updated DateTime 5 180.34 cm 25.4 kg/m2 56939.8 1 g 98.1 [degF] 59 /min 96 % 96 % 164 mm[Hg] 56 mm[Hg] Radha Oliveira RN [facility] 5 10:06:16 Date Recorded Body height Body weight Heart rate Systolic blood pressure Diastolic blood pressure Provider Name and Address Organization Details Last Updated DateTime 08/28/2024 180.34 cm 30938.81 g 62 /min 116 mm[Hg] 61 mm[Hg] Irina Wolfe CA - [facility] 5 09:57:45 Social History Question Answer Notes LastModified by Organization Details LastModified Time Tobacco Smoking Status Never Smoker Not Available [employer] 07/22/2022 00:50:36 Do You Have An Advance Directive? No Already Has Paperwork MIGRATION.030 [id number] Information not available 07/22/2022 What Is Your Level Of Alcohol Consumption? Occasional MIGRATION.030 [id number] Information not available 07/22/2022 How Many Years Have You Consumed Alcohol? 50 [email or web address] Information not available 01/03/2024 Are You Blind Or Do You Have Difficulty Seeing? No Wears Glasses Information not available 01/03/2024 What Is Your Level Of Caffeine Consumption? Occasional Information not available 01/03/2024 In The 14 Days Before Symptom Onset, Have You Had Close Contact With A Laboratory-conf irmed COVID-19 While That Case Was Ill? No MIGRATION.030 [id number] Information not available 07/22/2022 In The 14 Days Before Symptom Onset, Have You Had Close Contact With A Person Who Is Under Investigation For COVID-19 While That Person Was Ill? No MIGRATION.030 [id number] Information not available 07/22/2022 Are You Currently Employed? No Retired Information not available 01/03/2024 Are You Deaf Or Do You Have Serious Difficulty Hearing? Yes [place] No Hearing Aids, Has Tinitis MIGRATION.030 290266 Information not available 07/22/2022 What Type Of Diet Are You Following? REGULAR MIGRATION.030 535326 Information not available 07/22/2022 What Is The Highest Grade Or Level Of School You Have Completed Or The Highest Degree You Have Received? [id number] MIGRATION.030 636105 Information not available 07/22/2022 Do You Have An Electrostatic Air Filter? No Information not available 02/01/2023 How Many Days Of Moderate To Strenuous Exercise, Like A Brisk Walk, Did You Do In The Last 7 Days? 5 MIGRATION.030 [id number] Information not available 07/22/2022 On Those Days That You Engage In Moderate To Strenuous Exercise, How Many Minutes, On Average, Do You Exercise? 30 [email or web address] Information not available 01/03/2024 Have There Been Any Changes To Your Family Or Social Situation? Yes Lost His Brother [email or web address] Information not available 01/03/2024 What Is The Fluoride Status Of Your Home? Unknown MIGRATION.0301 [id number] Information not available 07/22/2022 Are There Any Guns Present In Your Home? No MIGRATION.0301 623555 Information not available 07/22/2022 Do You Have A Humidifier? No Information not available 02/01/2023 Do You Use Insect Repellent Routinely? No MIGRATION.0301 571012 Information not available 07/22/2022 Where Do You Live? [place]LevelHouse MIGRATION.0301 813545 Information not available 07/22/2022 Presence Of Domestic Violence No [email or web address] Information not available 01/03/2024 Guns Present In The Home? Yes In Safe [email or web address] Information not available 01/03/2024 Are You Able To Care For Yourself? Yes Information not available 01/03/2024 Are You Blind Or Do Yo Have Difficulty Seeing? No [email or web address] Information not available 01/03/2024 Are You Deaf Or Do You Have Serious Difficulty Hearing? Yes [place] [email or web address] Information not available 01/03/2024 General Stress Level? Low [email or web address] Information not available 01/03/2024 Live Alone Of With Others? With Others [email or web address] Information not available 01/03/2024 Do You Have A Medical Power Of City Bailiff? No MIGRATION.0301 [id number] Information not available 07/22/2022 Do You Have Moisture Problems In Your Home? No Information not available 02/01/2023 What Was The Date Of Your Most Recent Tobacco Screening? 01/03/2024 Information not available 01/03/2024 How Many Children Do You Have? 1 Information not available 01/03/2024 Have You Ever Been Counseled For Unhealthy Alcohol Use? No Information not available 01/03/2024 Do You Have Any Pets? No MIGRATION.0301 557488 Information not available 07/22/2022 What Is Your Relationship Status? MIGRATION.0301 210527 Information not available 07/22/2022 Do You Use Your Seat Belt Or Car Seat Routinely? Yes MIGRATION.0301 361139 Information not available 07/22/2022 Do You Have Smoke And Carbon Monoxide Detectors In Your Home? Yes MIGRATION.0301 863290 Information not available 07/22/2022 Are You Passively Exposed To Smoke? No MIGRATION.0301 041268 Information not available 07/22/2022 Are There Any Smokers In Your House? No MIGRATION.0301 078579 Information not available 07/22/2022 What Types Of Sporting Activities Do You Participate In? None [email or web address] Information not available 01/03/2024 Do You Feel Stressed (tense, Restless, Nervous, Or Anxious, Or Unable To Sleep At Night)? [id number] llalor Information not available 07/03/2024 Do You Use Any Illicit Or Recreational Drugs? No MIGRATION.0301 051346 Information not available 07/22/2022 Do You Use Sunscreen Routinely? Yes MIGRATION.0301 [id number] Information not available 07/22/2022 Has Tobacco Cessation Counseling Been Provided? No N/a MIGRATION.0301 294921 Information not available 07/22/2022 Have You Recently Traveled Abroad? No MIGRATION.0301 867883 Information not available 07/22/2022 Do You Or Have You Ever Used Any Other Forms Of Tobacco Or Nicotine? No MIGRATION.0301 436879 Information not available 07/22/2022 How Many Days In The Past Year Have You Consumed 5 Or More Drinks? -1 [email or web address] Information not available 01/03/2024 Sex: Male Functional Status Question Answer Note LastModified by Organizat ion Details LastModified Time Do you have difficulty walking or climbing stairs? No MIGRATION.[id number] 026 Information not available 07/22/2022 Do you have transportation difficulties? No MIGRATION.6079686 026 Information not available 07/22/2022 Are you able to walk? YESWOREST MIGRATION.1255141 026 Information not available 07/22/2022 Do you have difficulty doing errands alone? No MIGRATION.[id number] 026 Information not available 07/22/2022 Are you able to care for yourself? Yes MIGRATION.1233014 026 Information not available 07/22/2022 Do you have difficulty dressing or bathing? No MIGRATION.5694366 026 Information not available 07/22/2022 What is your exercise level? Heavy MIGRATION.8874338 026 Information not available 07/22/2022 Mental Status Question Answer Note LastModified by Organizat ion Details LastModified Time Do you have difficulty concentrating, remembering or making decisions? No MIGRATION.[id number] 6 Information not available 07/22/2022 Family History Relationship Description Onset Age of this Age Resolved Age Notes LastModified by Organization Details LastModified Time Father Hypertensive disorder MIGRATION.156 [id number] Not available 07/22/2022 00:53:28 Mother Hypertensive disorder MIGRATION.961 [id number] Not available 07/22/2022 00:53:28 Mother Diabetes mellitus MIGRATION.712 [id number] Not available 07/22/2022 00:53:29 Father Rheumatoid arthritis Not available 2022 10:30:18 Father Malignant tumor of larynx Not available 2022 10:30:52 Mother Malignant tumor of breast Not available 2022 10:30:36 Medical History Condition Response ARTHRITIS Y DIABETES, TYPE Y CANCER: SPECIFY Y Immunizations Vaccine Type Date Status Note Provider Nam e and Address Organization Details Recorded Time zoster recombinant 3 completed Kiley Robins RN null, [facility] 12/20/2023 10:48:00 Tdap 3 completed JONATHAN Gray, [facility] 12/20/2023 10:48:01 COVID-19, mRNA, LNP-S, bivalent, PF, 50 mcg/0.5 mL or 25mcg/0.25 mL dose 2 completed JONATHAN Gray, [facility] 12/20/2023 10:48:01 COVID-19, mRNA, LNP-S, bivalent, PF, 50 mcg/0.5 mL or 25mcg/0.25 mL dose 2 completed JONATHAN Gray, [facility] 12/20/2023 10:48:01 Pneumococcal conjugate PCV 13 8 completed JONATHAN Gray, [facility] 12/20/2023 10:48:01 Influenza, high-dose, quadrivalent, PF 1 completed JONATHAN Gray, [facility] 12/20/2023 10:48:01 Influenza, adjuvanted, quadrivalent, PF 0 completed JONATHAN Gray, [facility] 12/20/2023 10:48:01 COVID-19, mRNA, LNP-S, PF, 30 mcg/0.3 mL dose 1 completed JONATHAN Gray, [facility] 12/20/2023 10:48:01 COVID-19, mRNA, LNP-S, PF, 30 mcg/0.3 mL dose 1 completed JONATHAN Gray, [facility] 12/20/2023 10:48:01 COVID-19, mRNA, LNP-S, PF, 30 mcg/0.3 mL dose 1 completed JONATHAN Gray, [facility] 12/20/2023 10:48:01 COVID-19, mRNA, LNP-S, PF, 30 mcg/0.3 mL dose, shlomo[facility]sucrose [facility] 10:48:01 COVID-19, mRNA, LNP-S, bivalent, PF, 30 mcg/0.3 mL dose 2 completed JONATHAN Gray, [facility] 12/20/2023 10:48:01 pneumococcal polysaccharide PPV23 9 completed JONATHAN Gray, [facility] 12/20/2023 10:48:01 Influenza, split virus, trivalent, preservative 2 completed JONATHAN Gray, [facility] 12/20/2023 10:48:01 COVID-19, mRNA, LNP-S, PF, 100 mcg/0.5mL dose or 50 mcg/0.25mL dose 1 completed JONATHAN Gray, [facility] 12/20/2023 10:48:01 COVID-19, mRNA, LNP-S, PF, 100 mcg/0.5mL dose or 50 mcg/0.25mL dose 1 completed Kiley Robins RN null, [facility] 12/20/2023 10:48:01 COVID-19, mRNA, LNP-S, PF, 100 mcg/0.5mL dose or 50 mcg/0.25mL dose 1 completed Kiley Robins RN null, [facility] 12/20/2023 10:48:01 zoster live 4 completed Kiley Robins RN null, [facility] 12/20/2023 10:48:01 Influenza, high-dose, quadrivalent, PF 2 completed Kiley Robins RN null, [facility] 12/20/2023 10:48:01 Influenza, high-dose, trivalent, PF 0 completed Kiley Robins RN null, [facility] 12/20/2023 10:48:01 Influenza, high-dose, trivalent, PF 2 completed Kiley Robins RN null, [facility] 12/20/2023 10:48:01 Past Encounters Encounter ID Performer Location Encounter Start Date Encounter Closed Date Diagnosis/Indication Diagnosis SNOMED-CT Code Diagnosis ICD10 Code Diagnosis Note [id number] Devin Corrales MD [facility] [place] [address] [place] [address] 07/23/2020 00:00:00 07/23/2020 15:54:36 [id number] Devin Corrales MD [facility] [place] [address] [place] [address] 08/20/2020 00:00:00 08/20/2020 12:16:37 [id number] [facility] [place] [address] [place] [address] 09/05/2020 00:00:00 09/05/2020 13:32:19 [id number] Case brasher MD [facility] [place] [address] [place] [address] 11/04/2020 00:00:00 11/04/2020 18:22:29 [id number] Devin Corrales MD [facility] [place] [address] [place] [address] 11/05/2020 00:00:00 11/05/2020 10:22:34 [id number] [facility] [place] [address] [place] [address] 12/02/2020 00:00:00 12/02/2020 13:44:16 [id number] Devin Corrales MD [facility] [place] [address] [place] [address] 02/04/2021 00:00:00 02/04/2021 09:31:04 [id number] Case brasher MD [facility] [address] [place] [address] y , [place] [address] 02/24/2021 00:00:00 02/24/2021 15:16:52 [id number] Chalino Walters MD [facility] [place] [address] [place] [address] 04/15/2021 00:00:00 04/15/2021 14:27:08 [id number] Devin Corrales MD [facility] [place] [address] [place] [address] 04/29/2021 00:00:00 04/29/2021 12:49:19 [id number] [facility] [place] [address] [place] [address] 05/26/2021 00:00:00 05/26/2021 14:20:55 [id number] [facility] [place] [address] [place] [address] 06/23/2021 00:00:00 06/23/2021 11:29:47 [id number] Devin Corrales MD [facility] [place] [address] [place] [address] 08/05/2021 00:00:00 08/05/2021 09:33:51 [id number] Case brasher MD [facility] [address] [place] [address] [place] [address] 08/06/2021 00:00:00 08/06/2021 15:39:13 [id number] [facility] [place] [address] [place] [address] 09/15/2021 00:00:00 09/15/2021 11:02:08 [id number] Case brasher MD [facility] [address] [place] [address] y , [place] [address] 01/05/2022 00:00:00 01/05/2022 09:59:02 [id number] [facility] [place] [address] [place] [address] 01/05/2022 00:00:00 01/05/2022 13:47:30 [id number] Devin Corrales MD [facility] [place] [address] [place] [address] 01/06/2022 00:00:00 01/06/2022 09:39:37 [id number] [facility] [place] [address] [place] [address] 02/12/2022 00:00:00 02/12/2022 14:07:56 [id number] Chalino Walters MD [facility] [place] [address] [place] [address] 03/23/2022 00:00:00 03/23/2022 10:06:17 [id number] Chalino Walters MD [facility] [place] [address] [place] [address] 04/20/2022 00:00:00 04/20/2022 10:09:05 [id number] Case brasher MD [facility] Internal Med [facility] [address] [facility] y [address] [address] 05/04/2022 00:00:00 05/04/2022 11:54:51 [id number] Chalino Walters MD [facility] [place] [address] [place] [address] 05/07/2022 00:00:00 05/07/2022 09:46:52 [id number] [facility] [place] [address] [place] [address] 05/07/2022 00:00:00 05/07/2022 13:44:05 [id number] Devin Corrales MD [facility] [place] [address] [place] [address] 07/14/2022 00:00:00 07/14/2022 12:12:57 [id number] Case brasher MD [facility] Internal Med [facility] [address] [place] [address] y [address] [address] 08/24/2022 10:01:38 08/24/2022 11:02:05 Screening - NAD [id number] Z13.9 C-scope: 06/11/17: Dr Meneses next in 10 years Get flu shotUTD on Zoster vaccine 10/05/13a n do TdapUTD on PneumovaxU TD COVID 19 vaccine RTC in 4 monthswith the labsER if worse,he did verbalize his understand ing of the above Hyperlipidemia 39755427 E78.5 On vascepa, not taking this On rosuvastat in 10mg dailyGet labs Prostate s pecific antigen above reference range [id number] R97.20 11/09/2019 : Dr Chahal, s/p prostate biopsyPati ent did call and notify the office that the biopsy was positive for cancer 12/19/2019 : Dr Canelo Peacock radiation oncology, to begin ADT with firmagon or eligard and casodexMRI of pelvisTRUS guided by urology OV 01/05/2022 :Sees urology Dr Chahal will get an earlier apt as he has noted some blood in the urine, feels it could be from his working out OV 05/04/2022 :On flomaxDoes well now, PSA WNLHe does see Dr Chahal OV 08/24/2022 :On flomaxDoes well, see Dr Chahal Type 2 rosalind betes mellitus without complication 825953560 E11.9 On glipizide ER 5mg daily Was told to take jardiance by Dr Verdin but it is very expensiveD oes wellGet labsDr Rammacher Pain in right hand [id number] 47554 M79.641 S/p R LF arthroplas ty Dr Corrales Sees Dr rDea buckley On hydroxychl oroqine, sees eye MDOn folateOn the tramadol, cut back on tylenol On morphine as neededSees Dr Corrales next 11/03/2022 Essential hypertension 53489491 I10 On amlodipine 5mg daily, not 10mg, as he says his BP is 'good' Not on chlorthali done 25mg 1/2 tab dailyOn losartan 100mg daily Does [facility] Dr Hernandez Benign pro static hyperplasia without outflow obstruction 155439037 N40.0 On flomax now againState s that he does well Hypogonadism 22020429 E2 9.1 Feels that he is getting 'hot flashes'Se es urology Dr Chahal Knee joint painful on movement [id number] M25.[address] Walters, s/p TKR done 20 years ago Chronic ki dney disease 090249596 N18.[address] Jane is not taking chlorthali done as it makes his mouth dry CT A/P: 08/03/2022 Primary er ectile dysfunction 968973820 N52.9 On viagraDoes wellTake as needed Neuropathy 990539885 G62 .9 On gabapentin 300mg dailyDoes well Vitamin D deficiency 347 93634 E55.9 On vit d weekly given by Dr Jacobson labs [id number] Finesse Miller DPM [facility] [place] [address] [place] [address] 08/24/2022 11:22:14 08/25/2022 13:36:18 Onychomycosis of toenails 544008853 B35.1 educated on treatment optionsRx ketoconazo lefollow-u p 3 months Diabetes mellitus 140138 09 E11.40 B35.1 M79.676 continue with PCP recommenda tionscheck feet daily for wounds infection and presents the medical attention immediatel y [id number] Devin Corrales MD [facility] [place] [address] [place] [address] 11/03/2022 09:46:57 11/03/2022 10:04:19 Osteoarthritis 719544858 M19.041 continue conservati ve treatment for the arthritis. Happy to see him back again if increasing symptoms we could do cortisone injection of the involved joints for the D IP joints could do an arthrodesi s for any the PIP joints or MCP joints or CMC of the thumb we would consider arthroplas ty as a last resort. Arthritis of first carpometacarpal joint of left hand [id number] 495558 M13.842 Acquired d eformity of finger 46263406 M20.002 [id number] Case brasher MD [facility] Internal Med [place] patel [address] [place] [address] 01/11/2023 10:02:17 01/11/2023 11:04:03 Screening - NAD 016218488 Z13.9 C-scope: 06/11/17: Dr Meneses next in 10 years Get flu shotUTD on Zoster vaccine 10/05/13a n do TdapUTD on PneumovaxU TD COVID 19 vaccine RTC in 6 monthswith the labsER if worse,he did verbalize his understand ing of the above Hyperlipidemia 95235083 E78.5 On vascepa, not taking this On rosuvastat in 10mg dailyGet labs Prostate s pecific antigen above reference range 588410124 R97.20 11/09/2019 : Dr Chahal, s/p prostate biopsyPati ent did call and notify the office that the biopsy was positive for cancer 12/19/2019 : Dr Canelo Peacock radiation oncology, to begin ADT with firmagon or eligard and casodexMRI of pelvisTRUS guided by urology OV 01/05/2022 :Sees urology Dr Chahal will get an earlier apt as he has noted some blood in the urine, feels it could be from his working out OV 05/04/2022 :On flomaxDoes well now, PSA WNLHe does see Dr Chahal OV 08/24/2022 :On flomaxDoes well, see Dr Chahal OV 01/11/2023 :On flomax, sees urology Type 2 rosalind betes mellitus without complication 523158792 E11.9 On glipizide ER 5mg daily Was told to take jardiance by Dr Verdin but it is very expensiveD oes Carito Miller 08/24/2022 Dr Dunia flanagan 11/16/2022 Pain in right hand 40243 41075 49139 M79.641 S/p R LF arthroplas ty Dr Corrales Sees Dr Drea buckley On hydroxychl oroqine, sees eye MDOn folateOn the tramadol, cut back on tylenolOn sulfasalaz ine On morphine as needed Dr Corrales 11/03/2022 Essential hypertension 49210108 I10 On amlodipine 5mg daily, not 10mg, as he says his BP is 'good' Not on chlorthali done 25mg 1/2 tab dailyOn losartan 100mg daily [facility] 07/30/2022 Benign pro static hyperplasia without outflow obstruction 608297814 N40.0 On flomax now againState s that he does well Hypogonadism 96474005 E2 9.1 Feels that he is getting 'hot flashes'Se es urology Dr Chahal Knee joint painful on movement 185463256 M25.[address] Walters, s/p TKR done 20 years ago Chronic ki dney disease 434231515 N18.[address] Jane is not taking chlorthali done as it makes his mouth dry CT A/P: 08/03/2022 Primary er ectile dysfunction 982087287 N52.9 On viagraDoes wellTake as needed Neuropathy 992099141 G62 .9 On gabapentin 300mg dailyDoes well Vitamin D deficiency 347 16325 E55.9 On vit d weekly given by Dr Jacobson labs Exposure to asbestos 699 103728 Z77.090 Was exposed to asbestos while at workGet CT chest [id number] Abhi Duran MD [facility] [place] [address] 02/01/2023 09:25:50 02/01/2023 12:21:01 Thickening of pleura 02012794 J92.9 R06.00 R05.9 T78.40XA D89.9 [id number] Abhi Duran MD [facility] [place] [address] 02/08/2023 09:41:15 02/08/2023 11:05:36 Thickening of pleura 47308179 J92.9 R06.00 R05.9 [id number] Case brasher MD [facility] Internal [facility] [address] [place] [address] , [place] [address] 07/05/2023 09:52:05 07/05/2023 10:46:26 Screening - NAD 593896239 Z13.9 C-scope: 06/11/17: Dr Meneses next in 10 years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
--- OUTSIDE RECORDS SUMMARY | 2024-09-27 10:14 | XMS_ITS | CONTINUITY OF CARE DOCUMENT ---
Author Name mariliarenea mariliarenea Address Unknown Organization [facility] Address [address] [place] [address] Phone [phone] Care Team Providers Care Ict Development Manager Name Role Phone Andres Hernandez MD Unavailable [phone] CINDY MONTGOMERY MD Unavailable LENI NELSON DO Unavailable PROBLEMS Condition Status Date Provider Notes Palpitations active Andres Hernandez MD Diabetes mellitus, Type II active ? Adria Walsh e Diabetic neuropathy active Andres Tovar Essential hypertension active Andres marshall MD BPH- PSA rising 07/2018 completed 8 - Adria Fabricete OSTEOARTHRITIS active Andres Hernandez MD Dyslipidemia active Adria Martniez Vitamin D deficiency active Adria Kysandra CKD active Andres Hernandez MD Rheumatoid arthritis active Adria Martinez Prostate cancer s/p radiation active Adria Juan Cardiovascular screening active Adria Martinez Aortic regurgitation, mild-moderate active Adnres Hernandez MD Erectile dysfunction active Andres Hernandez MD ENCOUNTERS Date Type Provider Location Encounter Diag nosis - In-person encounter Office Visit Andres Hernandez MD [facility] - In-person encounter Office Visit Andres Hrenandez MD [facility] - In-person encounter Office Visit Andres Hernandez MD [facility] - In-person encounter Office Visit Andres Hernandez MD [facility] Erectile dysfunction - In-person encounter Office Visit Andres Hernandez MD [facility] Aortic regurgitation, mild-moderate - In-person encounter Office Visit Andres Hernandez MD [facility] - In-person encounter Office Visit Andres Hernandez MD [facility] Diabetes mellitus, Type IIBPH- PSA rising 07/2018DyslipidemiaVitamin D deficiencyRheumatoid arthritisProstate cancer s/p radiationCardiovascular screening - In-person encounter Office Visit Andres Hernandez MD [facility] - In-person encounter Office Visit Andres Hernandez MD [facility] CKD - In-person encounter Office Visit Andres Hernandez MD [facility] - In-person encounter Office Visit Andres Hernandez MD [facility] Dyslipidemia - In-person encounter Office Visit Andres Hernandez MD [facility] PalpitationsDiabetes mellitus, Type IIDiabetic neuropathyEssential hypertensionBPH- PSA rising 07/2018OSTEOARTHRITIS VITAL SIGNS Date Observation Value Provider Body Mass Index (Ratio) 25.83 kg/m2 Shantanu Hernandez MD blood pressure, diastolic 74 mm[Hg] Fabrice wasserman [place] blood pressure, systolic 115 mm[Hg] Urvashi tidwell [place] oxygen saturation, oximetry 96 % Stuart [place] pulse rate 60 /min Stuart [place] blood pressure, cuff size regular [place] lux [place] weight E&M 185.2 [lb_av] Fabricearon [place] height E&M 71 [in_i] [facility] Body Mass Index (Ratio) 27.19 kg/m2 Shantanu Hernandez MD pulse rate 57 /min [facility] blood pressure, cuff size regular [facility] blood pressure, diastolic 73 mm[Hg] [facility] blood pressure, systolic 148 mm[Hg] [facility], oximetry 95 % [facility] weight E&M 195 [lb_av] [facility] respiratory rate E&M 16 /min Heydi Carlie [facility] height E&M 71 [in_i] [facility] Body Mass Index (Ratio) 27.47 kg/m2 Abraham Bauer blood pressure, cuff size regular Ke rri Gruenenfeld blood pressure, diastolic 72 mm[Hg] Ke rri Gruenenfelder blood pressure, systolic 142 mm[Hg] Ker ri Gideonuenenfeld oxygen saturation, oximetry 96 % Shea Seamuseld respiratory rate E&M 12 /min Shea dangeldeileen pulse rate 64 /min Shea Gruenenfe [facility] weight E&M 197 [lb_av] Shea Gruenenfe [facility] height E&M 71 [in_i] Shea Gruenenfe [facility] Body Mass Index (Ratio) 28.03 kg/m2 Shantanu Hernandez MD blood pressure, diastolic 81 mm[Hg] Malorie nkLogic blood pressure, systolic 175 mm[Hg] Kristal kLogic blood pressure, diastolic 81 mm[Hg] St castillo Sims blood pressure, systolic 175 mm[Hg] Néstor Brice oxygen saturation, oximetry 98 % Adia Brice pulse rate 66 /min Adia White n respiratory rate E&M 16 /min Samson Yuanman blood pressure, cuff size large St jonathan Brice weight E&M 201 [lb_av] Adia White n height E&M 71 [in_i] Adia White n Body Mass Index (Ratio) 28.87 kg/m2 Abraham b Nacht blood pressure, diastolic 63 mm[Hg] Li nkLogic blood pressure, systolic 157 mm[Hg] Kristal kLogic blood pressure, diastolic 63 mm[Hg] Ca therine Kyle blood pressure, systolic 157 mm[Hg] Cat herine Kyle oxygen saturation, oximetry 96 % Glo Kyle respiratory rate E&M 14 /min Catheri ne Kyle pulse rate 60 /min Glo Mt Baldy weight E&M 207 [lb_av] Glo Kyle blood pressure, cuff size regular Ca therine Kyle height E&M 71 [in_i] Glo Kyle Body Mass Index (Ratio) 28.87 kg/m2 Tanvir n Kyte blood pressure, cuff size large Ke rri Gruenenfelder blood pressure, diastolic 60 mm[Hg] Ke rri Gruenenfelder blood pressure, systolic 152 mm[Hg] Ker ri Gruenenfelder oxygen saturation, oximetry 97 % Shea Dbnftitier respiratory rate E&M 16 /min Shea G ruenenfelder pulse rate 66 /min Shea Gruenenfe lder weight E&M 207 [lb_av] Shea Seamuse lder height E&M 71 [in_i] Shea Benznenfe er Body Mass Index (Ratio) 29.15 kg/m2 Tanvir Martinez blood pressure, cuff size large Ke rri Gruenenfelder blood pressure, diastolic 70 mm[Hg] Ke rri Gruenenfelder blood pressure, systolic 148 mm[Hg] Parth Wayelder oxygen saturation, oximetry 97 % Shea Waytash respiratory rate E&M 16 /min [facility] pulse rate 76 /min Shea Benznenfe er weight E&M 209 [lb_av] Shea Waye er height E&M 71 [in_i] Shea Waye [facility] Body Mass Index (Ratio) 29.84 kg/m2 Shantanu Hernandez MD blood pressure, cuff size regular Cy katlin Sandoval blood pressure, diastolic 70 mm[Hg] Cy katlin Sandoval blood pressure, systolic 140 mm[Hg] Mikki Sandoval oxygen saturation, oximetry 95 % Merlene Sandoval respiratory rate E&M 16 /min Merlene Sandoval pulse rate 71 /min Merlene Campbell l weight E&M 214 [lb_av] Merlene Campbel l height E&M 71 [in_i] Merlene Campbel l Body Mass Index (Ratio) 29.01 kg/m2 Shantanu Hernandez MD blood pressure, diastolic 70 mm[Hg] Da babatunde Sue blood pressure, systolic 142 mm[Hg] Argenis stevens Sue oxygen saturation, oximetry 94 % Lexi Sue respiratory rate E&M 16 /min Lexi V oss pulse rate 66 /min Lexi Sue weight E&M 208 [lb_av] Lexi Sue height E&M 71 [in_i] Lexi Sue Body Mass Index (Ratio) 27.05 kg/m2 Shantanu Hernandez MD blood pressure, diastolic 70 mm[Hg] Ki zach Rodriguez blood pressure, systolic 140 mm[Hg] Carine dsouza [place] oxygen saturation, oximetry 98 % [facility] E&M 16 /min [facility] pulse rate 65 /min [facility] weight E&M 194 [lb_av] [facility] blood pressure, resting Yes [facility] height E&M 71 [in_i] [facility] Body Mass Index (Ratio) 27.36 kg/m2 Shantanu Hernandez MD blood pressure, diastolic 80 mm[Hg] Leena Diaz blood pressure, systolic 162 mm[Hg] Natalia Diaz oxygen saturation, oximetry 96 % Pedro Diaz respiratory rate E&M 18 /min Aubrey Hookenson pulse rate 65 /min Pedro Lorenzo lalita weight E&M 196.2 [lb_av] Pedro pinonon height E&M 71 [in_i] Pedro Ventura nson Body Mass Index (Ratio) 27.75 kg/m2 Jean-Claude Fontenot blood pressure, cuff size regular Ke rri Inés blood pressure, diastolic 70 mm[Hg] Ke rri Inés blood pressure, systolic 152 mm[Hg] Parth Conte oxygen saturation, oximetry 96 % Shea Inés respiratory rate E&M 18 /min Shea dangtitieileen pulse rate 68 /min Shea Menesesnanosumit nikoleer weight E&M 199 [lb_av] Shea Jung nikoleer height E&M 71 [in_i] Shea Benzchapis daigle ALLERGIES No Known Drug Allergies RESULTS Date Observation Value Provider Reference Range Interpretation Location thyroid stimulating hormone, serum 0.701 u[IU]/mL Racheal Fontenot 8 triglyceride, serum, fasting 157 mg/dL [facility] HDL cholesterol, serum 39 mg/dL [facility] lipoprotein, beta, serum, point, quantitative, calculated 132 mg/dL Racheal oFntenot cholesterol, serum 202 mg/dL Racheal Fontenot creatinine, serum 1.13 mg/dL Racheal Fontenot 8 hemoglobin A1C, blood, as % of total hemoglobin 6.8 % Racheal Fontenot HISTORY OF MEDICATION USE Medication Status Instructions Dates Provider Indications Com ments sulfasalazine 500 mg tablet,delayed release (DR/EC) active take 1 to 2 pills twice a day Shea Conte Cimzia 400 mg/2 mL (200 mg/mL x 2) syringe kit active 2 shots a month Shea Conte rosuvastatin 10 mg tablet active Andres Hernandez MD tramadol 50 mg tablet active [facility] Hernandez MD chlorthalidone 25 mg tablet active take 1/2 tablet daily Shea Conte METHOTREXATE SODIUM 2.5 MG ORAL TABLET completed take daily 06/28 - 07/03 Shea Conte folic acid 1 mg tablet active Take 1 tablet once a day 06/28 Merlene Sandoval hydroxychloroquine 200 mg tablet active Take 2 by mouth once a day 06/28 Shea Conte TRAMADOL HCL 50 MG ORAL TABLET completed take 1 tab once every 6 hours 06/28 - 07/03 Shea Conte METRONIDAZOLE 0.75 % EXTERNAL LOTION completed apply 2x daily 07/29 - 07/03 Lexi Rogers ICaps AREDS [phone] [id number] capsule active 1 capsule by mouth once a day 07/29 Gl[facility] cholecalciferol (vitamin D3) 1,250 mcg (50,000 unit) capsule active 1 capsule by mouth once a month 07/29 Andres Hernandez MD furosemide 20 mg tablet completed 1 tablet once a day 07/29 - 07/31 Andres Hernandez MD glipizide 5 mg tablet active 1 tablet o nce a day 07/29 Glo Kyle tamsulosin 0.4 mg capsule active 1 capsule by mouth once a day 07/29 Glo [facility] Baldy HYDROCHLOROTHIAZIDE 12.5 MG ORAL TABLET completed One tablet once daily 07/06 - 07/29 Maria Fernanda Rodriguez ROSUVASTATIN CALCIUM 40 MG ORAL TABLET completed One tablet once daily at night - 07/03 Shea Conte #90, 90 days supply, Filled 7 ASPIRIN ADULT LOW DOSE 81 MG ORAL TABLET DELAYED RELEASE completed One Tab By Mouth Daily - 07/29 Maria Fernanda Rodriguez VIAGRA 50 MG ORAL TABLET completed as needed - 07/03 Shea Conte TRAZODONE HCL 50 MG ORAL TABLET completed take one pill as needed - 07/29 Maria Fernanda Rodriguez METFORMIN HCL 500 MG ORAL TABLET completed take one pill twice a day - 07/29 Maria Fernanda Rodriguez losartan 100 mg tablet active Take 1 tablet once a day Shea Conte gabapentin 300 mg capsule active Take 2 by mouth once a day Shea Conte DOXYCYCLINE HYCLATE 20 MG ORAL TABLET completed take as directed - 07/03 Lexi Rogers CELEBREX 200 MG ORAL CAPSULE completed take one pill a day - 07/29 Maria Fernanda Rodriguez amlodipine 5 mg tablet active Take 1 by mouth once a day Andres Hernandez MD SOCIAL HISTORY Date Observation Value Provider personal history of marijuana use no Andres Hernandez MD drug use no Andres Hernandez MD alcohol use, average drinks per day social Andres Hernandez MD alcohol use yes Andres Hernandez MD smoking status Never smoker Andres marshall MD alcohol use, average drinks per day social Mariangel Ventimiglia DRIVER RECRUITER personal history of marijuana use no Mariangel Ventimiglia DRIVER RECRUITER drug use no Mariangel Ventimig juan DRIVER RECRUITER alcohol use yes Mariangel Ventimig juan DRIVER RECRUITER smoking status Never smoker Heydi Price smoking status Never smoker Andres marshall MD social history E&M S moking History: P brenda has never smoked. Andres Hernandez MD social history reviewed E&M revi ewed - no changes required Andres Hernandez MD smoking status Never smoker Adia valdivia social history E&M S moking History: P brenda has never smoked. Andres Hernandez MD social history reviewed E&M revi ewed - no changes required Andres Hernandez MD smoking status Never smoker Glo Lilian s social history E&M S moking History: P atmahogany has never smoked. Adria Martinez social history reviewed E&M revi ewed - no changes required Adria Martinez smoking status Never smoker Shea fairchild social history E&M S moking History: P atmahogany has never smoked. Andres Hernandez MD social history reviewed E&M revi ewed - no changes required Andres Hernandez MD smoking status Never smoker Shea fairchild social history E&M S moking History: Magda gutierrez has never smoked. Andres Hernandez MD social history reviewed E&M revi ewed - no changes required Andres Hernandez MD smoking status Never smoker Merlene Vicente shelby social history E&M S moking History: Magda gutierrez has never smoked. Andres Hernandez MD social history reviewed E&M revi ewed - no changes required Andres Hernandez MD smoking status Never smoker Lexi Rogers social history reviewed E&M revi ewed - no changes required Thalia Sanders NP smoking status Never smoker Maria Fernanda Pazsameera carlie social history reviewed E&M revi ewed - no changes required Andres Hernandez MD smoking status Never smoker Pedro Walsh number of grandchildren Andres Hernandez MD social history reviewed E&M revi ewed - no changes required Andres Hernandez MD smoking status Never smoker Shea Acenuzhat devorah FAMILY HISTORY Family Member Condition Father Negative FH of Coron artie Artery Disease Mother Negative FH of Coron artie Artery Disease INSURANCE PROVIDERS Payer name Policy type / Coverage type [place] [employer] green party ID [id number] [place] Medicare [id number] ADVANCE DIRECTIVES Name Date DISCUSSED - NO DECISION MADE TREATMENT PLAN Date Name Performer [id number],C, C omplains of erectile dysfunction since treatment for prostate cancer. Considering penile implant. Andres Hernandez MD [id number],C, P er Dr. KAVITA Palafox. Andres Hernandez MD [id number],C, B P elevated during office visit which he attributes to walking into the office. When he checks at home, it runs in the 130s-140s. Advised reduced sodium intake and routine monitoring of the blood pressure. We aim for blood pressure less than 130/80. Andres Hernandez MD [id number],C, C ontinues on Glipizide. Reduced intake of carbohydrates and sugars advised. Andres Hernandez MD [id number],C, M ild-moderate by echo 06/2020. Pt. is asymptomatic. We would benefit from a surveillance echo at his next appointment. Andres Hernandez MD [id number],C, N o recurrence. Andres Hernandez MD [id number],C, C ontinues on Rosuvastatin. In view of his diabetes, we aim for LDL < 70. Andres Hernandez MD [id number],S, C ontinues on Hydroxychloroquin. Gets injections of symzia every other week. Follows rheumatology. Andres Hernandez MD [id number],S, M ild-moderate by echo 06/2020. Pt. ia asymptomatic. Continue routine monitoring. Andres Hernandez MD [id number],B, C ontinues on Hydroxychloroquin. Gets injections of symzia every other week. Follows rheumatology. Andres Hernandez MD [id number],S, N o recurrence. Andres Hernandez MD [id number],S, C ontinues on Rosuvastatin. In view of his diabetes, We aim for LDL < 70. Andres Hernandez MD [id number],S, B P elevated during office visit but was satisfactory during last stress test. No changes made. Advised reduced sodium intake and routine monitoring of the blood pressure. We aim for blood pressure less than 130/80. Andres Hernandez MD [id number],S, C ontinues on Glipizide. Reduced intake of carbohydrates and sugars advised. Andres Hernandez MD [id number],S, P er Dr. KAVITA Palafox. Andres Hernandez MD [id number],S, P SA back down to 2. Andres Hernandez MD Cardiology:Aim for L DL below 70 H is updated medication list for this problem includes: Rosuvastatin 10 Mg Tablet (Rosuvastatin) Andres Hernandez MD Cardiology:stable Andres Hernandez MD Cardiology: H is updated medication list for this problem includes: Glipizide 5 Mg Tablet (Glipizide) ..... 1 tablet once a day Losartan 100 Mg Tablet (Losartan) ..... Take 1 tablet once a day Andres Hernandez MD Cardiology:Follows Dr Lambert Hernandez MD Cardiology: B P today: 115/74 P rior BP: 148/73 (09/08/2023) His updated medication list for this problem includes: Chlorthalidone 25 Mg Tablet (Chlorthalidone) ..... Take 1/2 tablet daily Amlodipine 5 Mg Tablet (Amlodipine) ..... Take 1 by mouth once a day Losartan 100 Mg Tablet (Losartan) ..... Take 1 tablet once a day Andres Hernandez MD Cardiology: H is updated medication list for this problem includes: Rosuvastatin 10 Mg Tablet (Rosuvastatin) [place] Ghazal [facility] Cardiology: H is updated medication list for this problem includes: Glipizide 5 Mg Tablet (Glipizide) ..... 1 tablet once a day Losartan 100 Mg Tablet (Losartan) ..... Take 1 tablet once a day Mariangelunruly Harman [facility] Cardiology:BP 148/73 slightly above goal w ill have him monitor c ontinue present medication regimen H is updated medication list for this problem includes: Chlorthalidone 25 Mg Tablet (Chlorthalidone) ..... Take 1/2 tablet daily Amlodipine 5 Mg Tablet (Amlodipine) ..... Take 1 by mouth once a day Losartan 100 Mg Tablet (Losartan) ..... Take 1 tablet once a day Mariangel Harman [facility] Cardiology:EF normal . Mild AR on last echo W ill continue to monitor patient asymptomatic Mariangel Harman [facility] Cardiology:Had stres s PET that was negative for ischemia P atient would be an acceptable risk for planned surgical procedure. Mariangel [facility] Cardiology: B P reasonably well controlled. Advised reduced sodium intake and routine monitoring of the blood pressure. We aim for blood pressure less than 130/80. Andres Hernandez MD Cardiology: M ild by echo today. Pt. is asymptomatic. Andres Hernandez MD Cardiology: C ontinues on Glipizide. Reduced intake of carbohydrates and sugars advised. Andres Hernandez MD Cardiology: C ontinues on Rosuvastatin. In view of his diabetes, we aim for LDL < 70. Andres Hernandez MD Cardiology: G ets injections of cimzia monthly. Follows rheumatology. A s he has had arthritis for many years and takes multiple medications, will arrange for a stress PET/CT (patient cannot walk due to orthopedic issues. Andres Hernandez MD Cardiology: N o recurrence. Andres Hernandez MD Cardiology: C omplains of erectile dysfunction since treatment for prostate cancer. Considering penile implant. Andres Hernandez MD Cardiology: P er Dr. KAVITA Palafox. Andres Hernandez MD Cardiology: B P elevated during office visit which he attributes to walking into the office. When he checks at home, it runs in the 130s-140s. Advised reduced sodium intake and routine monitoring of the blood pressure. We aim for blood pressure less than 130/80. Andres Hernandez MD Cardiology: C ontinues on Glipizide. Reduced intake of carbohydrates and sugars advised. Andres Hernandez MD Cardiology: M ild-moderate by echo 06/2020. Pt. is asymptomatic. We would benefit from a surveillance echo at his next appointment. Andres Hernandez MD Cardiology: N o recurrence. Andres Hernandez MD Cardiology: C ontinues on Rosuvastatin. In view of his diabetes, we aim for LDL < 70. Andres Hernandez MD Cardiology: C ontinues on Hydroxychloroquin. Gets injections of symzia every other week. Follows rheumatology. Andres Hernandez MD Cardiology: M ild-moderate by echo 06/2020. Pt. ia asymptomatic. Continue routine monitoring. Andres Hernandez MD Cardiology: C ontinues on Hydroxychloroquin. Gets injections of symzia every other week. Follows rheumatology. Andres Hernandez MD Cardiology: N o recurrence. Andres Hernandez MD Cardiology: C ontinues on Rosuvastatin. In view of his diabetes, We aim for LDL < 70. Andres Hernandez MD Cardiology: B P elevated during office visit but was satisfactory during last stress test. No changes made. Advised reduced sodium intake and routine monitoring of the blood pressure. We aim for blood pressure less than 130/80. Andres Hernandez MD Cardiology: C ontinues on Glipizide. Reduced intake of carbohydrates and sugars advised. Andres Hernandez MD Cardiology: P er Dr. KAVITA Palafox. Andres Hernandez MD Cardiology: P SA back down to 2. Andres Hernandez MD Cardiology Follow up :Continues on replacement. Adria Martinez Cardiology Follow up :Per Dr. KAVITA Palafox. Adria Martinez Cardiology Follow up :Continues on Hydroxychloroquin. Follows rheumatology. Adria Martinez Cardiology Follow up :Continues on Glipizide. Reduced intake of carbohydrates and sugars advised. Adria Martinez Cardiology Follow up :Continues on Rosuvastatin. In view of his diabetes, We aim for LDL < 70. Adria Cardiology Follow up :BP elevated during office visit but was satisfactory during stress test. No changes made. Advised reduced sodium intake and routine monitoring of the blood pressure. We aim for blood pressure less than 130/80. Cardiology Follow up :Stress test with normal perfusion and echo with normal LV size and systolic function. The patient has been reassured. Cardiology Follow up :Continues on Hydroxychloroquin. Follows rheumatology. Cardiology Follow up :PSA back down to 2. Cardiology Follow up :Continues on Rosuvastatin. In view of his diabetes, We aim for LDL < 70. Cardiology Follow up :Continues on Glipizide. Reduced intake of carbohydrates and sugars advised. Will request labs from your office. Cardiology Follow up :Blood pressure elevated at 148/70. No changes to antihypertensives made. He continues on Losartan 100mg daily and Amlodipine 10mg daily. Advised reduced sodium intake and routine monitoring of the blood pressure. We aim for less than 130/80. Adria Cardiology Follow up :Has mulitple risk factors for CAD including hypertension, hyperlipidemia, diabetes mellitus, and rheumatoid arthritis. His last ischemic workup was more than 3 years ago. Will check echo and stress test. Adria sandra Cardiology follow up :Per Dr. KAVITA Palafox. Andres Hernandez MD Cardiology follow up :Well controlled per patient. Continues on Glipizide. Andres Hernandez MD Cardiology follow up :Continues on Rosuvastatin. Andres Hernandez MD Cardiology follow up :BP control satisfactory. Andres Hernandez MD Cardiology follow up :Continues on Glipizide. Well controlled per patient. Andres Hernandez MD Cardiology follow up :Continues Crestor Andres Hernandez MD Cardiology follow up :Follows nephrology. We await labs. Andres Hernandez MD Cardiology follow up :Blood pressure control is satisfactory. Andres Hernandez MD Cardiology:Blood pre ssure is well controlled. Recently taken off of HCTZ. We await labs from Dr. KAVITA Palafox's office. Thalia Bentleydall WINDOW INSTALLER Cardiology:Recently switched from metformin to glipizide. Thalia Bentleydall WINDOW INSTALLER Cardiology:No recurrence. Thalia Bentleydall WINDOW INSTALLER Cardiology:Continues Crestor She radha Sanders WINDOW INSTALLER Cardiology Andres Mcintyre D Cardiology Andres Mcintyre D Cardiology:Continues on Crestor. Andres Hernandez MD Cardiology:Blood pre ssure remains elevated. Will add HCTZ 12.5mg to present regimen. Hopefully blood pressure control will improve. Andres Hernandez MD Cardiology New Patie nt :Blood pressure control is satisfactory. Andres Hernandez MD Cardiology New Patie nt :Continues on oral medications. Andres Hernandez MD Cardiology New Patie nt :Patient is asymptomatic and he has never experienced a flutter in his chest. On a routine visit, an irregularity of the heart was noticed, and the patient was then referred to us for further evaluation. In office, he was in regular rhythm. EKG showed NSR and was otherwise unremarkable. He has risk factors for CAD, and I have therefore given telesentry monitor, and will arrange echocardiogram and stress test for him. Andres Hernandez MD Date Name Stress Cardiac PET-C T Complete Echo Stress Regadenoson Complete Echo Mobile Cardiac Tele STR - Nuclear Complete Echo HISTORY OF PROCEDURES Procedure Date Procedure Name Provider Procedure Notes S tatus Complex e/m visit add on Andres Hernandez MD completed EKG Andres Hernandez MD complet ed EKG Andres Hernandez MD complet ed EKG Andres Hernandez MD complet ed EKG Andres Hernandez MD complet ed EKG Andres Hernandez MD complet ed EKG Andres Hernandez MD complet ed EKG Andres Hernandez MD complet ed EKG Andres Hernandez MD complet ed SNOMED-CT: [id number] Current Medications Documented Andres Hernandez MD completed Stress EKG Yazmin Palafox MD completed Cardiolite, 2 units Andres Hernandez MD completed SPECT Images Yazmin Palafox MD complet ed Event Monitor Andres Hernandez MD comp leted EKG Andres Hernandez MD complet ed SNOMED-CT: [id number] Current Medications Documented Andres Hernandez MD completed
--- OUTSIDE RECORDS SUMMARY | 2024-09-27 10:14 | XMS_ITS | Encounter Summary ---
Author Organization [facility] Address [address] [place] [address] Care Team Providers Care Salon Leader Name Role Phone Ricco Juárez MD Primary Care Provider [phone] Care, [facility] Unavailable [phone] Encounter Details Date Type Department Care Team (Late st Contact Info) Description 01/19/2024 Lab Requisition [facility] - DermPath Lab [address] [place] [address] Richie Cunningham MD [address] [place] [address] Social History Tobacco Use Types Packs/Day Years Used Date Smoking Tobacco: Never Assessed Sex and Gender Information Value Date Recorded Sex Assigned at Not on file 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 Physician [facility] - Received: 01/19/2024 05:35 PM DermPath Lab Pathologist: Davina Mora MD Specimen: Skin, left jawline 12:43 PM [facility] DERMATOPATHOLOGY LABORATORY Final Diagnosis Specimen A. 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 The specimen consists of a shave biopsy measuring 5x5x1 mm. Jar 0. 12:43 PM [facility] DERMATOPATHOLOGY LABORATORY Microscopic Description Specimen A. SKIN, left jawline: Sections show a tumor composed of lobules by a fibrovascular stoma. The cells show variable sebaceous differentiation, manifested as finely vacuolated cytoplasm. The nuclei are large with prominent nucleoli and scattered mitoses. The hematoxylin and eosin stain is reviewed; immunohistochemical stains are performed to further characterize this process. Tumor cells are positive for CRISPIN and display focal expression of CK7. BerEp4 is negative. The Ki67 proliferation index is increased. 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 A moderately differentiated squamous cell carcinoma with sebaceous differentiation was also considered but is somewhat less favored. Sebaceous neoplasms may arise sporadically or in association with the Clark-Osvaldo Syndrome. Immunohistochemical stains for mismatch repair proteins (MSH2, MSH6, MLH1 and PMS2) can be performed upon the clinician's request. This case has been reviewed by Dr. Anna Mora who concurs with the diagnosis. 12:43 PM [facility] DERMATOPATHOLOGY LABORATORY Disclaimer An external and internal positive and negative controls are appropriate for the histochemical, immunohistochemical and immunofluorescence stain(s) in this case (if any), except where stated explicitly. The performance characteristics of the stain(s) cited in this report were developed and its performance characteristic determined by the Dermatopathology Laboratory at [facility], directed by Dr. Rivas Ge. These tests need not be, and therefore are not, approved by the [place] Food and Drug Administration. The tests are used for clinical purposes. Billing Codes Specimen Charges Stain Charges 49255 1 32176 17527 76380 10768 1 1 1 1 4 12:43 PM CDT DERMATOPATHOLOGY LABORATORY Embedded Images 4 12:43 PM CDT DERMATOPATHOLOGY LABORATORY Pathology/Cytolog y TISSUE SPECIMEN FROM SKIN / Unknown 01/19/2024 01/19/2024 5:35 PM CDT Richie Cunningham MD LAB - PATHOLOGY/CYTOLOGY ORDERAB LES Final Result DERMATOPATHOLOGY LABORATORY [facility] - Department of Dermatology [address], [address] [phone] documented in this encounter Visit Diagnoses Not on filedocumented in this encounter Care Teams Salon Leader Relationship Specialty Start Date End Date Ricco Juárez MD PCP - General 05/31/19 Care, [facility] Care Management 10/30/21 documented as of this encounter
--- OUTSIDE RECORDS SUMMARY | 2024-09-27 10:14 | XMS_ITS | Encounter Summary ---
Author Organization [facility] Address [address] [place] [address] Care Team Providers Care Ultimate Hoops Referee Name Role Phone Ricco Juárez MD Primary Care Provider Care, [facility] Kidney Unavailable [phone] Encounter Details Date Type Department Care Team (Late st Contact Info) Description 02/02/2024 Lab Requisition [facility] - DermPath Lab [address] [place] [address] Richie Cunningham MD [address] [place] [address] Social History Tobacco Use Types Packs/Day Years Used Date Smoking Tobacco: Never Assessed Sex and Gender Information Value Date Recorded Sex Assigned at Not on file 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 Gender Identity Not on file Sexual Orientation Not on file documented as of this encounter Plan of Treatment Not on file documented as of this encounter Procedures Procedure Name Priority Date/Time Associated Diagnosis Comments DERMATOPATHOLOGY Routine 02/01/2024 12:0 0 AM CDT documented in this encounter Results * DERMATOPATHOLOGY (02/01/2024 12:00 AM CDT) Case Report Dermatopathology Report Case: [id number] Authorizing Provider: Richie Cunningham MD Collected: 02/01/2024 12:00 AM Ordering Location: [facility] Physician [facility] - Received: 02/02/2024 09:33 AM DermPath Lab Pathologist: Anna Mora MD Specimens: A) - Skin, left groin B) - Skin, right hip 2:15 PM T DERMATOPATHOLOGY LABORATORY Final Diagnosis Specimen A. SKIN, left groin: ACROCHORDON (SOFT FIBROMA, SKIN TAG) (L91.8) Specimen B. SKIN, right hip: ACROCHORDON (SOFT FIBROMA, SKIN TAG) (L91.8) DERMAL FIBROSIS (L90.5) 2:15 PM T DERMATOPATHOLOGY LABORATORY Clinical History IFEP 2:15 PM T DERMATOPATHOLOGY LABORATORY Gross Description Specimen A: Received is one formalin filled container labeled with the patients name and designated left groin. The specimen consists of a shave removal measuring 11x5x9 mm. Jar 0. Specimen B: Received is one formalin filled container labeled with the patients name and designated right hip. The specimen consists of a shave removal measuring 5x3x5 mm. Jar 0. 2:15 PM T DERMATOPATHOLOGY LABORATORY Microscopic Description Specimen A. SKIN, left groin: There is a gently folded epidermis surrounding a connective tissue core in which fat and collagen are intermingled. Specimen B. SKIN, right hip: There is a gently folded epidermis surrounding a connective tissue core in which fat and collagen are intermingled. There is focal dermal fibrosis. 2:15 PM T DERMATOPATHOLOGY LABORATORY Disclaimer An external and internal positive and negative controls are appropriate for the histochemical, immunohistochemical and immunofluorescence stain(s) in this case (if any), except where stated explicitly. The performance characteristics of the stain(s) cited in this report were developed and its performance characteristic determined by the Dermatopathology Laboratory at [facility], directed by Dr. Rivas Ge. These tests need not be, and therefore are not, approved by the [place] Food and Drug Administration. The tests are used for clinical purposes. Billing Codes Specimen Charges Stain Charges 02514 50464 1 1 2:15 PM CDT DERMATOPATHOLOGY LABORATORY Embedded Images 2:15 PM T DERMATOPATHOLOGY LABORATORY Pathology/Cytology TISSUE SPECIMEN FROM SKIN / Unknown 02/01/2024 02/02/2024 9:33 AM CDT Miscellaneous samples (specimen) TISSUE SPECIMEN FROM SKIN / Unknown 02/01/2024 02/02/2024 9:33 AM CDT us Richie Cunningham MD LAB - PATHOLOGY/CYTOLOGY ORDERAB LES Final Result DERMATOPATHOLOGY LABORATORY [facility] - Department of Dermatology [facility] Medicine [address] [place] [address], [address] [phone] documented in this encounter Visit Diagnoses Not on filedocumented in this encounter Care Teams Ultimate Hoops Referee Relationship Specialty Start Date End Date Ricco Juárez MD PCP - General 05/31/19 Care, [facility] Care Management 10/30/21 documented as of this encounter
--- OUTSIDE RECORDS SUMMARY | 2024-09-27 10:14 | XMS_ITS | Clinical Summary ---
Author Organization [facility] Address [address] [place] [address] Care Team Providers Care Newspaper Carriers Supervisor Name Role Phone Ricco Juárez MD Primary Care Provider [phone] Care, [facility] Unavailable [phone] Source Comments [facility],non-owned Affiliates and Associated Physician Practices is amultiple site organization consisting of ambulatory clinics and hospital sitesin [place], [place], [place] and [place]. This disclosure is being madepursuant to the Care Everywhere program and may not contain all information available regarding this patient. 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 Gender Identity Not on file Sexual Orientation Not on file Plan of Treatment Health Maintenance Due Date Last Done Comments COLOGUARD (AGES 45-75) - COL ON CA SCREENING 1950 COLON MONITORING 1950 COLONOSCOPY - COLON CA SCREENING 1950 CT COLONOGRAPHY - COLON CA SCREENING 1950 Colorectal Cancer Screening 1950 FIT - COLON CA SCREENING 1950 FLEX SIG - COLON CA SCREENING 1950 LIPID TESTING 1950 MEDICARE AWV 12 MONTHS 1950 HEPATITIS C SCREENING 12/24/1968 DTAP/TDAP/TD VACCINES (1 - Tdap) 1969 PNEUMOCOCCAL VACCINE 50+ (1 of 1 - PCV) 2000 ZOSTER VACCINE (1 of 2) 2000 COVID-19 VACCINE (2023-2 5 season) 2024 DEPRESSION SCREENING 05/24/2024 INFLUENZA VACCINE (Season Ended) 2025 Respiratory Syncytial Virus (RSV) Vaccine Pt: or over 60 yrs (1 - 1-dose 75+ series) 2025 HEPATITIS B VACCINE Aged Out No longe r eligible based on patient's age to complete this topic HIB VACCINE Aged Out No longer eligi ble based on patient's age to complete this topic HPV VACCINE Aged Out No longer eligi ble based on patient's age to complete this topic MENINGOCOCCAL (Group B) VACC INE SHARED DECISION-MAKING Aged Out No longer eligibl e based on patient's age to complete this topic MENINGOCOCCAL GROUPS A/C/Y/W VACCINE Aged Out No longer eligible b ased on patient's age to complete this topic [place] [address] [place] [address] Care Teams Newspaper Carriers Supervisor Relationship Specialty Start Date End Date Ricco Juárez MD PCP - General 05/31/19 Care, [facility] Care Management 10/30/21
--- OUTSIDE RECORDS SUMMARY | 2024-09-27 10:14 | XMS_ITS | Clinical Summary ---
Author Organization [facility] Address [address] [address] Care Team Providers Care Flotation Tank Operator Name Role Phone Case Cohn MD Primary Care Provider [phone] Allergies No known active allergies Medications Empagliflozin 10 MG tablet Take 10 mg by mouth 1 (one) time each day 90 tablet 1 1 Active Dapagliflozin Propanediol 5 MG tablet Take 5 mg by mouth every morning 90 tablet 1 1 Active gabapentin (NEURONTIN) 300 MG capsule Take 300 mg by mouth 1 (one) time each day 2 Active glipiZIDE (GLUCOTROL XL) 5 MG 24 hr tablet Take 5 mg by mouth 1 (one) time each day 2 Active losartan (COZAAR) 100 MG tablet losartan 100 mg tablet Take 1 tablet by mouth once daily 7 Active rosuvastatin (CRESTOR) 10 MG tablet Take 10 mg by mouth 2 Active sildenafil (VIAGRA) 50 MG tablet sildenafil 50 mg tablet Active sulfaSALAzine (AZULFIDINE) 500 MG tablet Take 1-2 tablets by mouth in the morning and 1-2 tablets in the evening. Active ergocalciferol 1.25 MG (90371 UT) capsule TAKE 1 CAPSULE BY MOUTH ONCE EVERY MONTH 4 capsule 3 Active chlorthalidone 25 MG tablet TAKE 1 TABLET BY MOUTH ONCE DAILY IN THE MORNING 90 tablet 5 Active Encounters Date Type Department Care Team Description 09/12/2024 Orders Only [facility], [place] [address] [address] [place] [address] Diego Verdin DO 07/27/[address] [facility] [address] [phone] Diego Verdin DO from Last 3 Months Social History Tobacco Use Types Packs/Day Years Used Date Smoking Tobacco: Never Smokeless Tobacco: Never Tobacco Cessation:Counseling Given: Not Answered Alcohol Use Standard Drinks/Week Comments Yes 1 (1 standard drink = 0.6 oz pur e alcohol) Sex and Gender Information Value Date Recorded Sex Assigned at Not on file Legal Sex Male 2:53 PM EDT Gender Identity Not on file Sexual Orientation Not on file Last Filed Vital Signs Vital Sign Reading Time Taken Comments Blood Pressure 120/64 01/04/2024 1:34 PM CDT Pulse 55 01/04/2024 1:34 PM CDT Temperature 36.1 C (97 F) 01/04/2024 1:34 PM CDT Respiratory Rate 18 01/04/2024 1:34 PM CDT Oxygen Saturation 99% 01/04/2024 1:34 PM CDT Inhaled Oxygen Concentration - - Weight 87.1 kg (192 lb) 01/04/2024 1:34 PM CDT Height 180.3 cm (5' 11 ) 01/12/2023 1:02 PM CDT Body Mass Index 26.78 01/12/2023 1:02 PM CDT Plan of Treatment Upcoming Encounters Date Type Department Care Team (Late st Contact Info) Description 10/03/2024 12:30 PM CDT Office Visit [facility], [facility] [address] [phone] Diego Verdin DO [address] [facility] [address] [place] [phone] Health Maintenance Due Date Last Done Comments Colorectal Cancer Screening: Annual FOBT 12/30/1999 Colorectal Cancer Screening: Colonoscopy 12/30/1999 Colorectal Cancer Screening: Sigmoidoscopy 12/30/1999 Diabetes: Ophthalmology Exam 10/17/2020 Diabetes: Pedal Pulse Checked 10/17/2020 Diabetes: Sensory Foot Exam 10/17/2020 Diabetes: Visual Foot Exam 10/17/2020 Diabetes: Hemoglobin A1C 03/23/2024 024, 06/17/2021 Influenza Vaccine (Season Ended) 2025 03/05/2020, 01/23/2020, 03/19/2012 Pneumococcal Vaccine: 50+ Years Completed 09/16/2018, 09/13/2017 Hepatitis B Vaccine Aged Out No longe r eligible based on patient's age to complete this topic Procedures Procedure Name Priority Date/Time Associated Diagnosis Comments PTH, INTACT Routine 09/12/2024 7:40 AM CDT PROTEIN,TOTAL,URINE Routine 09/12/2024 7 :40 AM CDT MAGNESIUM Routine 09/12/2024 7:40 AM CDT URINE ALBUMIN / CREATININE RATIO Routine 09/12/2024 7:40 AM CDT RENAL FUNCTION PANEL Routine 09/12/2024 7:40 AM CDT URINALYSIS WITH MICROSCOPIC Routine 09/12/2024 7:40 AM CDT CBC AND DIFFERENTIAL Routine 09/12/2024 7:40 AM CDT MICROSCOPIC EXAMINATION - DO NOT USE Routine 09/12/2024 7:40 AM CDT HEMOGLOBIN A1C Routine 12/22/2023 7:47 AM CDT from Last 3 Months or Most Recently Relevant to Health Maintenance Results * Protein, Total, Urine (09/12/2024 7:40 AM CDT) Protein, Ur 33.3 Not Estab. mg/dL [facility] 09/12/2024 7:40 AM CDT 09/11/2024 11:00 PM CDT us Diego Verdin DO LAB URINE ORDERABLES Final R esult Performing Organization Address City/State/[facility] Co de Phone Number [facility] [employer] [address] [place] [address] * Microscopic Examination (09/12/2024 7:40 AM CDT) WBC, Urine None seen 0 - 5 /hpf [facility] RBC, Urine 0-2 0 - 2 /hpf [facility] Squamous Epithelial, Urine None seen 0 - 10 /hpf [facility] Casts None seen None seen /lpf [facility] Bacteria, Urine None seen None seen/Few [facility] 09/12/2024 7:40 AM CDT 09/11/2024 11:00 PM CDT Diego Verdin DO LAB MICROBIOLOGY - GENERAL O RDERABLES Final Result Performing Organization Address [facility] de Phone Number [facility] [address] [place] [address] * (ABNORMAL) Urine Albumin / Creatinine Ratio (09/12/2024 7:40 AM CDT) Creatinine, Ur 83.3 Not Estab. mg/dL [facility] Albumin, Urine 91.3 Not Estab. ug/mL [facility] Albumin/Creatin ine Ratio 110(H) 0 - 29 mg/g creat [facility] Comment: Normal: 0 - 29 Moderately increased: 30 - 300 Severely increased: >300 09/12/2024 7:40 AM CDT 09/11/2024 11:00 PM CDT Diego Verdin DO LAB URINE ORDERABLES Final R esult Performing Organization Address City/[facility]/ZIP Co de Phone Number [facility] [address] [place] [address] * (ABNORMAL) Urinalysis with microscopic (09/12/2024 7:40 AM CDT) Pathologist [facility] Specific [place], Urine 1.012 1.005 - 1.030 [facility] pH Urine 6.0 5.0 - 7.5 [facility] Color, Urine Yellow Yellow [facility] Appearance Urine Clear Clear [facility] WBC Esterase Urine Negative Negative [facility] Protein, Ur 1+(A) Negative/Tra ce [facility] Glucose, Ur Negative Negative [facility] Ketones, Urine Negative Negative [facility] Blood Urine Negative Negative [facility] Bilirubin Urine Negative Negative [facility] Urobilinogen Urine 0.2 0.2 - 1.0 mg/dL [facility] Nitrite, Urine Negative Negative [facility] Microscopic Examination See below: [facility] Comment:Microscopic was ravi cated and was performed. 09/12/2024 7:4 0 AM CDT 09/11/2024 11:00 PM CDT us Diego Verdin DO LAB URINE ORDERABLES Final R esult [facility] [address] [place] [address] * CBC and Differential (09/12/2024 7:40 AM CDT) Pathologist [facility] WBC 5.0 3.4 - 10.8 x10E3/uL [facility] RBC 4.62 4.14 - 5.80 x10E6/uL [facility] Hemoglobin 14.2 13.0 - 17.7 g/dL [facility] Hematocrit 43.7 37.5 - 51.0 % [facility] MCV 95 79 - 97 fL [facility] MCH 30.7 26.6 - 33.0 pg [facility] MCHC 32.5 31.5 - 35.7 g/dL [facility] RDW 11.8 11.6 - 15.4 % [facility] Platelets 188 150 - 450 x10E3/uL [facility] Neutrophils Relative 53 Not Estab. % [facility] Lymphocytes Relative 28 Not Estab. % [facility] Monocytes 15 Not Estab. % [facility] Eosinophils Relative 3 Not Estab. % [facility] Basophils Relative 1 Not Estab. % [facility] Neutrophils Absolute 2.7 1.4 - 7.0 x10E3/uL [facility] Lymphocytes Absolute 1.4 0.7 - 3.1 x10E3/uL [facility] Monocytes Absolute 0.7 0.1 - 0.9 x10E3/uL [facility] Eosinophils Absolute 0.2 0.0 - 0.4 x10E3/uL [facility] Basophils Absolute 0.1 0.0 - 0.2 x10E3/uL [facility] Immature Granulocytes 0 Not Estab. % [facility] Immature Grans (Absolute) 0.0 0.0 - 0.1 x10E3/uL [facility] 09/12/2024 7:40 AM CDT 09/11/2024 11:00 PM CDT Diego Verdin DO LAB BLOOD ORDERABLES Final R esult [facility] [address] [place] [address] * PTH, Intact (09/12/2024 7:40 AM CDT) PTH 24 15 - 65 pg/mL [facility] 09/12/2024 7:40 AM CDT 09/11/2024 11:00 PM CDT Diego Verdin DO LAB BLOOD ORDERABLES Final R esult Performing Organization Address City/[facility]/ZIP Co de Phone Number [facility] [address] [place] [address] * Magnesium (09/12/2024 7:40 AM CDT) Magnesium 2.1 1.6 - 2.3 mg/dL [facility] 09/12/2024 7:40 AM CDT 09/11/2024 11:00 PM CDT Diego Verdin DO LAB BLOOD ORDERABLES Final R esult [facility] [address] [place] [address] * (ABNORMAL) Renal Function Panel (09/12/2024 7:40 AM CDT) Glucose 135(H) 70 - 99 mg/dL [facility] BUN 17 8 - 27 mg/dL [facility] Creatinine 1.13 0.76 - 1.27 mg/dL [facility] eGFR CKD-EPI CR 2020 69 >59 mL/min/1.7 3 [facility] BUN/Creatinine Ratio 15 10 - 24 [facility] Sodium 137 134 - 144 mmol/L [facility] Potassium 4.2 3.5 - 5.2 mmol/L [facility] Chloride 98 96 - 106 mmol/L [facility] Bicarbonate (CO2) 24 20 - 29 mmol/L [facility] Calcium 10.3(H) 8.6 - 10.2 mg/dL [facility] Phosphorus 2.6(L) 2.8 - 4.1 mg/dL [facility] Albumin 4.4 3.8 - 4.8 g/dL [facility] 09/12/2024 7:40 AM CDT 09/11/2024 11:00 PM CDT Diego Verdin DO LAB BLOOD ORDERABLES Final R [facility] [address] [place] [address] * (ABNORMAL) Hemoglobin A1c (12/22/2023 7:47 AM CDT) Hemoglobin A1C 6.1(H) 4.8 - 5.6 % [facility] Comment: Prediabetes: 5.7 - 6.4 Diabetes: >6.4 Glycemic control for adults with diabetes: <7.0 12/22/2023 7:47 AM CDT 12/21/2023 11:00 PM CDT Diego Verdin DO LAB BLOOD ORDERABLES Final R esult [facility] [address] [place] [address] from Last 3 Months or Most Recently Relevant to Health Maintenance Insurance Medicare [facility] [employer] [facility] Care Teams Flotation Tank Operator Relationship Specialty Start Date End Date Case Cohn MD [address] [place] [address] PCP - General 10/01/20
--- OUTSIDE RECORDS SUMMARY | 2024-09-27 10:16 | XMS_ITS | CONTINUITY OF CARE DOCUMENT ---
Author Name mariliarenea mariliarenea Address Unknown Organization [facility] Address [address] [place] [address] Phone [phone] Care Team Providers Care Data Review Specialist Name Role Phone Andres Hernandez MD Unavailable CINDY MONTGOMERY MD Unavailable LENI NELSON DO Unavailable [phone] PROBLEMS Condition Status Date Provider Notes Palpitations active Andres Hernandez MD Diabetes mellitus, Type II active ? Adria Walsh e Diabetic neuropathy active Andres Tovar Essential hypertension active Andres marshall MD OSTEOARTHRITIS active Andres Hernandez MD CKD active Andres Hernandez MD Rheumatoid arthritis active Adria Martinez Prostate cancer s/p radiation active Adria Martinez Cardiovascular screening active Adria Martinez Erectile dysfunction active Andres Hernandez MD Aortic regurgitation, mild-moderate active Andres Hernandez MD Vitamin D deficiency active Adria Martinez Dyslipidemia active Adria Martinez BPH- PSA rising 07/2018 completed - Adria Avinate ENCOUNTERS Date Type Provider Location Encounter Diag nosis - In-person encounter Office Visit Andres eHrnandez MD [facility] - In-person encounter Office Visit Andres Hernandez MD [facility] - In-person encounter Office Visit Andres Hernandez MD [facility] - In-person encounter Office Visit Andres Hernandez MD [facility] Erectile dysfunction - In-person encounter Office Visit Andres Hernandez MD [facility] Aortic regurgitation, mild-moderate - In-person encounter Office Visit Andres Hernandez MD [facility] - In-person encounter Office Visit Andres Hernandez MD [facility] Diabetes mellitus, Type IIBPH- PSA rising 07/2018DyslipidemiaVitamin D deficiencyRheumatoid arthritisProstate cancer s/p radiationCardiovascular screening - In-person encounter Office Visit Andres Hernandez MD [facility] - In-person encounter Office Visit Andres Hernandez MD [facility] CKD - In-person encounter Office Visit Andres Hernandez MD [facility] - In-person encounter Office Visit Andres Hernandez MD [facility] Dyslipidemia - In-person encounter Office Visit Andres Hernandez MD [facility] PalpitationsDiabetes mellitus, Type IIDiabetic neuropathyEssential hypertensionBPH- PSA rising 07/2018OSTEOARTHRITIS VITAL SIGNS Date Observation Value Provider Body Mass Index (Ratio) 25.83 kg/m2 Shantanu Hernandez MD blood pressure, diastolic 74 mm[Hg] Fabrice wasserman Harshaw blood pressure, systolic 115 mm[Hg] Urvashi tidwell Harshaw oxygen saturation, oximetry 96 % Stuart Harshaw pulse rate 60 /min Stuart Harshaw blood pressure, cuff size regular [facility] weight E&M 185.2 [lb_av] Fabricearon Robison height E&M 71 [in_i] [facility] Body Mass Index (Ratio) 27.19 kg/m2 Shantanu Hernandez MD pulse rate 57 /min [facility] blood pressure, cuff size regular [facility] blood pressure, diastolic 73 mm[Hg] [facility] blood pressure, systolic 148 mm[Hg] [facility], [facility]xim[facility] 95 % [facility] weight E&M 195 [lb_av] [facility] respiratory rate E&M 16 /min Heydi Carlie [facility] height E&M 71 [in_i] [facility] Body Mass Index (Ratio) 27.47 kg/m2 Abraham Bauer blood pressure, cuff size regular Ke rri Gruenenfeld blood pressure, diastolic 72 mm[Hg] Ke rri Gruenenfelder blood pressure, systolic 142 mm[Hg] Ker ri Gideonuenenfeld oxygen saturation, oximetry 96 % Shea Seamuseld respiratory rate E&M 12 /min Shea dangeldeileen pulse rate 64 /min Shea Gruenenfe [facility] weight E&M 197 [lb_av] Shea Gruenenfe [facility] height E&M 71 [in_i] Shea Gruenenfe [facility] Body Mass Index (Ratio) 28.03 kg/m2 Shantanu Hernandez MD blood pressure, diastolic 81 mm[Hg] Malorie nkLogic blood pressure, systolic 175 mm[Hg] Kristal kLogic blood pressure, diastolic 81 mm[Hg] [facility] cast[facility] [place] blood pressure, systolic 175 mm[Hg] Néstor Brice [...] ne Kyle pulse rate 60 /min Glo Templeton weight E&M 207 [lb_av] Glo Kyle blood [...] Body Mass Index (Ratio) 29.15 kg/m2 Tanvir Martienz blood pressure, cuff size large Ke rri Gruenenfelder blood pressure, diastolic 70 mm[Hg] Ke rri Gruenenfelder blood pressure, systolic 148 mm[Hg] Parth Wayelder oxygen saturation, oximetry 97 % Shea Waytash respiratory rate E&M 16 /min Shea Blanco [facility] pulse rate 76 /min Shea Benznenfe er weight E&M 209 [lb_av] Shea Waye er height E&M 71 [in_i] Shea Waye [facility] Body Mass Index (Ratio) 29.84 kg/m2 Shantanu Hernandez MD blood pressure, cuff size regular Cy katlin Sandoval blood pressure, diastolic 70 mm[Hg] Cy katlin Sandoval blood pressure, systolic 140 mm[Hg] Mikki aSndoval oxygen saturation, oximetry 95 % Merlene Sandoval [...] blood pressure, systolic 140 mm[Hg] Carine dsouza [place] oxygen saturation, oximetry 98 % [facility] E&M 16 /min [facility]Clear [facility] Health[facility] pulse rate 65 /min [facility] weight E&M 194 [lb_av] [facility] blood pressure, resting Yes Kill [facility] height E&M 71 [in_i] [facility] Body Mass Index (Ratio) 27.36 kg/m2 [...] [place] 8 triglyceride, serum, fasting 157 mg/dL [facility] HDL cholesterol, serum 39 mg/dL [facility] lipoprotein, beta, serum, point, quantitative, calculated 132 mg/dL Racheal Font[place]ot cholesterol, serum 202 mg/dL Racheal Font[place]ot creatinine, [...] Hernandez MD tramadol [address] [facility] gill Hernandez MD chlorthalidone 25 mg tablet [...] 07/29 - 07/03 Lexi Rogers ICaps AREDS [phone] [id number] capsule active 1 capsule by mouth once a day 07/29 Glo Templeton cholecalciferol (vitamin D3) 1,250 mcg (50,000 unit) [...] by mouth once a day 07/29 Glo Templeton HYDROCHLOROTHIAZIDE 12.5 MG ORAL TABLET completed One [...] average drinks per day social Mariangel Ventimiglia CRAWLER DRAGLINE OPERATOR personal history of marijuana use no Mariangel Ventimiglia CRAWLER DRAGLINE OPERATOR drug use no Mariangel Ventimig juan CRAWLER DRAGLINE OPERATOR alcohol use yes Mariangel Ventimig juan CRAWLER DRAGLINE OPERATOR smoking status Never smoker Heydi Price smoking [...] Payer name Policy type / Coverage type Purmela red libertarian ID [employer] [id number] [place] Medicare [id number] ADVANCE DIRECTIVES Name Date DISCUSSED - NO DECISION MADE TREATMENT PLAN Date Name Performer [id number],C, C omplains of erectile dysfunction since treatment for prostate cancer. Considering penile implant. Andres Hernandez MD [id number],C, P er Dr. KAVITA Palafox. Andres Hernandez MD [id number],C, B P elevated during office visit which he attributes to walking into the office. When he checks at home, it runs in the 130s-140s. Advised reduced sodium intake and routine monitoring of the blood pressure. We aim for blood pressure less than 130/80. Andres Hernandez MD [id number],C, C ontinues on Glipizide. Reduced intake of carbohydrates and sugars advised. Andres Hernandez MD [id number],C, M ild-moderate by echo 06/2020. Pt. is asymptomatic. We would benefit from a surveillance echo at his next appointment. Andres Hernandez MD [id number],C, N o recurrence. Andres Hernandez MD [id number],C, C ontinues on Rosuvastatin. In view of his diabetes, we aim for LDL < 70. Andres Hernandez MD [id number],S, C ontinues on Hydroxychloroquin. Gets injections of symzia every other week. Follows rheumatology. Andres Hernandez MD [id number],S, M ild-moderate by echo 06/2020. Pt. ia asymptomatic. Continue routine monitoring. Andres Hernandez MD [id number],B, C ontinues on Hydroxychloroquin. Gets injections of symzia every other week. Follows rheumatology. Andres Hernandez MD [id number],S, N o recurrence. Andres Hernandez MD [id number],S, C ontinues on Rosuvastatin. In view of his diabetes, We aim for LDL < 70. Andres Hernandez MD [id number],S, B P elevated during office visit but was satisfactory during last stress test. No changes made. Advised reduced sodium intake and routine monitoring of the blood pressure. We aim for blood pressure less than 130/80. Andres Hernandez MD [id number],S, C ontinues on Glipizide. Reduced intake of carbohydrates and sugars advised. Andres Hernandez MD [id number],S, P er Dr. KAVITA Palafox. Andres Hernandez MD [id number],S, P SA back down to 2. Andres [...] problem includes: Rosuvastatin 10 Mg Tablet (Rosuvastatin) [place] Ghazal [facility] Cardiology: H is updated medication list for this problem includes: Glipizide 5 Mg Tablet (Glipizide) ..... 1 tablet once a day Losartan 100 Mg Tablet (Losartan) ..... Take 1 tablet once a day Mariangelunruly Harman [facility] Cardiology:BP 148/73 slightly above goal w ill have him monitor c ontinue present medication regimen H is updated medication list for this problem includes: Chlorthalidone 25 Mg Tablet (Chlorthalidone) ..... Take 1/2 tablet daily Amlodipine 5 Mg Tablet (Amlodipine) ..... Take 1 by mouth once a day Losartan 100 Mg Tablet (Losartan) ..... Take 1 tablet once a day Mariangel Harman [facility] Cardiology:EF normal . Mild AR on last echo W ill continue to monitor patient asymptomatic Mariangel Harman [facility] Cardiology:Had stres s PET that was negative for ischemia P atient would be an acceptable risk for planned surgical procedure. Mariangel [facility] Cardiology: B P reasonably well controlled. Advised [...] from Dr. KAVITA Palafox's office. Thalia Bentleydall BOOM PUMP OPERATOR Cardiology:Recently switched from metformin to glipizide. Thalia Bentleydall BOOM PUMP OPERATOR Cardiology:No recurrence. Thalia Bentleydall BOOM PUMP OPERATOR Cardiology:Continues Crestor She radha Sanders BOOM PUMP OPERATOR Cardiology Andres Mcintyre D Cardiology Andres Mcintyre [...] EKG Andres Hernandez MD complet ed SNOMED-CT: [id number] Current Medications Documented Andres Hernandez MD completed Stress EKG Yazmin Palafox MD completed Cardiolite, 2 units Andres Hernandez MD completed SPECT Images Yazmin Palafox MD complet ed Event Monitor Andres Hernandez MD comp leted EKG Andres Hernandez MD complet ed SNOMED-CT: [id number] Current Medications Documented Andres Hernandez MD completed
--- OUTSIDE RECORDS SUMMARY | 2024-09-27 10:16 | XMS_ITS | Continuity of Care Document ---
Author Organization [facility] Address [address] [place] [address] Phone Care Team Providers Care Mechanical Technologist Name Role Phone Becerra OD, Sandip Unavailable Unavailable Procedures Procedure Date Eye Exam & Treatment Refraction Eye Exam & Treatment Refraction Eye Exam & Treatment Eye Exam & Treatment Advance Directives Directive Yes / No Effective Date File Name No Information Encounters Encounter Description Practice Location Reason(s) For Visit Diagnoses Date Provider Providers Copied on Encounter [facility], [id number] [place] [address] [address], [place], [place], [id number], [place] tel:[phone] [facility] No Information 8-201 0 Becerra OD Sandip. [address] , [address], [place], [place], [facility], [place]. tel:[phone] Referring Provider: Rcico Juárez MD, [address] [facility] [address] [facility] [address], [place], [place], [facility]. tel:[phone] [facility], [address], [place], [place], [id number], [place] tel:[phone] [facility] No Information 2-200 9 Becerra OD Sandip. [address] [facility] , [address], [place], [place], [facility], . tel:[phone] [facility], [address], [place], [place], [id number], [place] tel:[phone] [facility] No Information 4-200 8 Becerra OD Sandip. [address] [facility] , [address], [place], [place], [facility], . tel:[phone] Referring Provider: Ricco Juárez MD, [address] [facility] [address], [place], [place], [facility]. tel:[phone] [facility], [address], [place], [place], [id number], tel:[phone] [facility] No Information 8-200 7 Becerra OD Sandip. [address] [facility] , [address], [place], [place], [facility], [place]. tel:[phone] Referring Provider: Ricco Juárez MD, [address] [facility] [address], [place], [place], [facility]. tel:[phone] Family History Family Member Type Diagnosis Age At Onset No Information Payers Payer name Insurance type Covered alliance party ID Rian juareznoreen(s) [employer] Plan [id number] Social History Type Description Quantity Date Captured Comments Sex Male Smoking Status No Information Chief Complaint And Reason For Visit No Information Reason For Referral Reason For Referral No Information History Of Present Illness Encounter Date Complaint History Of Prese nt Illness No Information Functional Status Date Functional Assessmen t No Information Instructions Date Instruction Additional Infor mation No Information Assessments Type Assessment Date No Information Patient Care Teams Name Effective Dates (start - stop) Status Members No Information
== END 2024-09-27 10:29 | disposition home or self-care (01) ==
PROVIDERS: Emergency Provider Nurse Practitioner Family; PCP Internal Medicine
DX: S63.91XA Sprain of unspecified part of right wrist and hand, initial encounter (principal); X58.XXXA Exposure to other specified factors, initial encounter; I10 Essential (primary) hypertension; E11.9 Type 2 diabetes mellitus without complications; E78.5 Hyperlipidemia, unspecified; M06.9 Rheumatoid arthritis, unspecified; G62.9 Polyneuropathy, unspecified; Z96.653 Presence of artificial knee joint, bilateral
CPT/HCPCS: 73130; 99213; G0463